=== PATIENT | female | born 1940 | race Caucasian/White ===

== ENCOUNTER → 2017-07-17 | Outpatient (CLI) | payer MEDICARE, OTHER ==
--- NOTE | 2017-07-17 10:23 | REPMRS ---
Patient History The patient states she had a clinical breast exam in 07/2017. Family history of colorectal cancer in sister at age 50 or over. Digital Woman Screen Mammo: July 17, 2017 - Exam #: [id number] Bilateral CC and MLO view(s) were taken. Technologist: Dalia Roth Technologist Prior study comparison: July 15, 2016, digital woman screen mammo performed at [facility]. July 13, 2015, digital woman screen mammo performed at [facility]. April 20, 2014, digital woman screen mammo performed at [facility]. FINDINGS: There are scattered fibroglandular densities. There has been no change in the appearance of the mammogram from the prior studies. There is a mild amount of scattered fibroglandular density which is fairly symmetric. There is no interval development of dominant mass, architectural distortion, or clustered microcalcification suggestive of malignancy. ASSESSMENT: BI-RADS/ACR category 1 mammogram. Negative. Recommendation Routine screening mammogram in 1 year (for women over age 40). This mammogram was interpreted with the aid of an FDA-approved computer-aided dectection system. Electronically Signed By: Jim Talbot MD 07/17/17 4450
== END ==
LOC: M WHC 09:35
PROVIDERS: ATTEND Nurse Practitioner Women's Health
DX: Z01.419 Encounter for gynecological examination (general) (routine) without abnormal findings (principal); Z12.31 Encounter for screening mammogram for malignant neoplasm of breast
CPT/HCPCS: G0101; G0202

== ENCOUNTER → 2018-07-17 | Outpatient (CLI) | payer MEDICARE, OTHER | LOC: M WUC 12:32 | DX: S16.1XXA Strain of muscle, fascia and tendon at neck level, initial encounter (principal); M25.511 Pain in right shoulder; X58.XXXA Exposure to other specified factors, initial encounter; Y92.89 Other specified places as the place of occurrence of the external cause; Y93.9 Activity, unspecified | CPT/HCPCS: 72052 ==

== ENCOUNTER → 2018-07-20 | Outpatient (CLI) | payer MEDICARE, OTHER | LOC: M WHC 09:41 | DX: Z12.31 Encounter for screening mammogram for malignant neoplasm of breast (principal); Z80.0 Family history of malignant neoplasm of digestive organs | CPT/HCPCS: 77067 ==

== ENCOUNTER → 2018-09-03 | Outpatient (REF) | payer MEDICARE, OTHER ==
[2018-09-03 13:28] LABS: BASO % 0.5 % (0.0-1.0); EOS % 0.5 % (0.0-3.0); HEMATOCRIT 41.1 % (36.0-47.0); HEMOGLOBIN 13.8 g/dl (12.0-15.5); IMMATURE GRANULOCYTE % 0.2 % (0-3.0); LYMPH # 1.8 10^3/uL (1.5-4.5); LYMPH % 30.1 % (24.0-44.0); MEAN CORPUSCULAR HEMOGLOBIN 32.3 pg (27.0-33.0); MEAN CORPUSCULAR HGB CONC 33.6 g/dl (32.0-36.5); MEAN CORPUSCULAR VOLUME 96.3 fl (80.0-96.0); MONO # 0.4 10^3/uL (0.0-0.8); MONO % 7.2 % (0.0-5.0); NEUTROPHILS # 3.7 10^3/uL (1.8-7.7); NEUTROPHILS % 61.5 % (36.0-66.0); PLATELET COUNT, AUTOMATED 292 10^3/uL (150-450); RED BLOOD COUNT 4.27 10^6/uL (4.00-5.40); RED CELL DISTRIBUTION WIDTH 13.1 % (11.5-14.5); WHITE BLOOD COUNT 5.9 10^3/uL (4.0-10.0)
[2018-09-03 14:07] LABS: ALBUMIN 3.8 GM/DL (3.2-5.2); ALBUMIN/GLOBULIN RATIO 1.03 (1.00-1.93); ALKALINE PHOSPHATASE 53 U/L (45-117); ALT/SGPT 33 U/L (12-78); ANION GAP 8 MEQ/L (8-16); AST/SGOT 23 U/L (7-37); BILIRUBIN,TOTAL 0.8 MG/DL (0.2-1.0); BLOOD UREA NITROGEN 18 MG/DL (7-18); CALCIUM LEVEL 8.8 MG/DL (8.8-10.2); CARBON DIOXIDE LEVEL 29 MEQ/L (21-32); CHLORIDE LEVEL 104 MEQ/L (98-107); CHOLESTEROL LEVEL 242 MG/DL (<200); CHOLESTEROL RISK RATIO 3.361 (<5); CREATININE FOR GFR 0.81 MG/DL (0.55-1.30); GLOMERULAR FILTRATION RATE > 60.0 (>39); GLUCOSE, FASTING 86 MG/DL (70-100); HDL CHOLESTEROL 72 MG/DL (>40); LDL CHOLESTEROL 160 MG/DL (<100); NON-HDL-C 170 MG/DL; SODIUM LEVEL 141 MEQ/L (136-145); TOTAL 25(OH) VITAMIN D 33.5 NG/ML (30.0-100.0); TOTAL PROTEIN 7.5 GM/DL (6.4-8.2); TRIGLYCERIDES LEVEL 52 MG/DL (<150)
== END ==
LOC: M SFHCADAM 10:35
DX: K21.9 Gastro-esophageal reflux disease without esophagitis (principal); E78.2 Mixed hyperlipidemia; E55.9 Vitamin D deficiency, unspecified; Z79.899 Other long term (current) drug therapy
CPT/HCPCS: 84443

== ENCOUNTER → 2019-07-21 | Outpatient (CLI) | payer MEDICARE, OTHER ==
--- NOTE | 2019-07-21 10:06 | REPMRS ---
Patient History The patient states she had a clinical breast exam in 07/2019. Family history of colorectal cancer at age 50 or over in sister. No Hormone Replacement Therapy 3D TOMOSYNTHESIS WAS PERFORMED. [facility] for [facility] cancer is 1.7%. Digital Woman Screen Mammo: July 21, 2019 - Exam #: [id number] Bilateral CC and MLO view(s) were taken. Technologist: Sharonda Hinkle, Technologist Prior study comparison: July 20, 2018, bilateral digital woman screen mammo performed at [facility]. July 17, 2017, digital woman screen mammo performed at [facility]. FINDINGS: There are scattered fibroglandular densities. There has been no change in the appearance of the mammogram from the prior studies. There is a mild amount of residual fibroglandular tissue which is fairly symmetric. There is no interval development of dominant mass, architectural distortion, or clustered microcalcification suggestive of malignancy. Assessment: BI-RADS/ACR category 1 mammogram. Negative Mammogram. Recommendation Routine screening mammogram in 1 year (for women over age 40). This mammogram was interpreted with the aid of an FDA-approved computer-aided dectection system. Electronically Signed By: Yannick Mera MD 07/21/19 3501
== END ==
LOC: M WHC 09:18
PROVIDERS: ATTEND Nurse Practitioner Women's Health
DX: Z01.419 Encounter for gynecological examination (general) (routine) without abnormal findings (principal); Z12.31 Encounter for screening mammogram for malignant neoplasm of breast; Z80.0 Family history of malignant neoplasm of digestive organs
CPT/HCPCS: 77063; 77067; G0101

== ENCOUNTER → 2019-09-21 | Outpatient (REF) | payer MEDICARE, OTHER ==
[2019-09-21 12:43] LABS: BASO % 0.7 % (0.0-1.0); EOS # 0.1 10^3/uL (0.0-0.5); EOS % 2.4 % (0.0-3.0); HEMATOCRIT 40.7 % (36.0-47.0); HEMOGLOBIN 13.7 g/dl (12.0-15.5); LYMPH % 37.1 % (24.0-44.0); MEAN CORPUSCULAR HEMOGLOBIN 32.5 pg (27.0-33.0); MEAN CORPUSCULAR HGB CONC 33.7 g/dl (32.0-36.5); MEAN CORPUSCULAR VOLUME 96.4 fl (80.0-96.0); MONO # 0.4 10^3/uL (0.0-0.8); MONO % 7.7 % (0.0-5.0); NEUTROPHILS # 2.8 10^3/uL (1.5-8.5); NEUTROPHILS % 51.9 % (36.0-66.0); PLATELET COUNT, AUTOMATED 292 10^3/uL (150-450); RED BLOOD COUNT 4.22 10^6/uL (4.00-5.40); WHITE BLOOD COUNT 5.4 10^3/uL (4.0-10.0)
[2019-09-21 13:13] LABS: ALBUMIN 3.9 GM/DL (3.2-5.2); ALT/SGPT 27 U/L (12-78); BILIRUBIN,TOTAL 0.9 MG/DL (0.2-1.0); BLOOD UREA NITROGEN 15 MG/DL (7-18); CARBON DIOXIDE LEVEL 29 MEQ/L (21-32); CHLORIDE LEVEL 106 MEQ/L (98-107); CHOLESTEROL LEVEL 166 MG/DL (<200); CHOLESTEROL RISK RATIO 2.766 (<5); CREATININE FOR GFR 0.92 MG/DL (0.55-1.30); GLOMERULAR FILTRATION RATE > 60.0 (>39); GLUCOSE, FASTING 97 MG/DL (70-100); HDL CHOLESTEROL 60 MG/DL (>40); LDL CHOLESTEROL 89 MG/DL (<100); NON-HDL-C 106 MG/DL; POTASSIUM SERUM 4.8 MEQ/L (3.5-5.1); SODIUM LEVEL 142 MEQ/L (136-145); THYROID STIMULATING HORMONE 0.943 uIU/ML (0.358-3.740); TOTAL PROTEIN 7.6 GM/DL (6.4-8.2); TRIGLYCERIDES LEVEL 85 MG/DL (<150)
== END ==
LOC: M SFHCADAM 08:33
PROVIDERS: ATTEND Physician Assistant Medical
DX: K21.9 Gastro-esophageal reflux disease without esophagitis (principal); E78.2 Mixed hyperlipidemia; E55.9 Vitamin D deficiency, unspecified; Z23 Encounter for immunization
CPT/HCPCS: 80053; 80061; 84443; 85025; 90682; G0008; G0463

== ENCOUNTER → 2020-08-23 | Outpatient (CLI) | payer MEDICARE, OTHER ==
--- NOTE | 2020-08-23 10:22 | REPMRS ---
Patient History The patient states she had a clinical breast exam in August 2020. Family history of colorectal cancer at age 50 or over in sister. No Hormone Replacement Therapy 3D TOMOSYNTHESIS WAS PERFORMED. [facility] Volpara breast density b. Digital Woman Screen Mammo: August 23, 2020 - Exam #: [id number] Bilateral CC and MLO view(s) were taken. Technologist: Smiley Murray, Technologist Prior study comparison: July 21, 2019, bilateral digital woman screen mammo performed at [facility]. July 20, 2018, bilateral digital woman screen mammo performed at [facility]. FINDINGS: There are scattered fibroglandular densities. There has been no change in the appearance of the mammogram from the prior studies. There is a mild amount of residual fibroglandular tissue which is fairly symmetric. There is no interval development of dominant mass, architectural distortion, or clustered microcalcification suggestive of malignancy. Assessment: BI-RADS/ACR category 1 mammogram. Negative Mammogram. Recommendation Routine screening mammogram in 1 year (for women over age 40). This mammogram was interpreted with the aid of an FDA-approved computer-aided dectection system. Electronically Signed By: Yannick Mera MD 08/23/20 0723
--- NOTE | 2020-08-30 14:54 | DEXA ---
AP SPINE L1 - L4 1.158 -0.3 1.6 LT FEMUR TOTAL 0.782 -1.8 0.3 LT NECK 0.729 -2.2 0.0 RT FEMUR TOTAL 0.853 -1.2 0.8 RT NECK 0.772 -1.9 0.3 TOTAL BODY TOTAL OTHER COMMENTS: Normal bone densitometry of the spine. There is low bone density of the hips. The decreased density of the spine does not represent significant change. The decreased density of the left hip does not represent a significant change. The increased density of the right hip does represent significant change. The density of the spine is increased 14.8% since the initial exam on 11/25/2001. The decreased 0.4% since most recent exam on 03/30/2013. The density of the left hip has increased 2.1% since the initial exam on 11/25/2001. The density of the left hip has decreased 1.1% since the most recent exam on 03/30/2013. The density of the right hip has increased 5.7% since the initial exam on 11/25/2001. The density of the right hip has increased 0.4% since the most recent exam on 03/30/2013. FOLLOW-UP: Recommendation for the next bone density exam: 2 years. AVERY
== END ==
LOC: M WHC 08:34
PROVIDERS: ATTEND Nurse Practitioner Family
DX: Z01.411 Encounter for gynecological examination (general) (routine) with abnormal findings (principal); Z12.31 Encounter for screening mammogram for malignant neoplasm of breast; Z78.0 Asymptomatic menopausal state; Z80.0 Family history of malignant neoplasm of digestive organs
CPT/HCPCS: 77063; 77067; 77080; G0101

== ENCOUNTER → 2020-09-10 | Outpatient (CLI) | payer MEDICARE, OTHER | LOC: M LABSMTC 09:31 | PROVIDERS: ATTEND Anesthesiology | DX: Z01.812 Encounter for preprocedural laboratory examination (principal); Z20.828 Contact with and (suspected) exposure to other viral communicable diseases | CPT/HCPCS: C9803; U0003 ==

== ENCOUNTER 2020-09-15 11:20 | Day surgery (SDC) | payer MEDICARE, OTHER ==
[~2020-09-15] VITALS: Ht 160 cm; Wt 69.4 kg
[~2020-09-15 11:20] MED LIST: NS 1,000 ML IV ONE
--- NOTE | 2020-09-15 12:58 | ROOR ---
Patient Name: Britney Oakes Procedure Date: 09/15/2020 12:14 PM Date of : 1940 Age: 79 Room: [facility] Gender: Female Note Status: Finalized Procedure: Colonoscopy Indications: High risk colon cancer surveillance: Personal history of colonic polyps, Last colonoscopy: October 2014 Providers: Kodak Damon MD Referring MD: ARSALAN Rosales Requesting Provider: Medicines: Monitored Anesthesia Care Complications: No immediate complications. Procedure: Pre-Anesthesia Assessment: - Prior to the procedure, a History and Physical was performed, and patient medications and allergies were reviewed. The patient is competent. The risks and benefits of the procedure and the sedation options and risks were discussed with the patient. All questions were answered and informed consent was obtained. Patient identification and proposed procedure were verified by the physician, the nurse and the lead project engineer in the procedure room. Mental Status Examination: alert and oriented. Airway Examination: normal oropharyngeal airway and neck mobility. CV Examination: regular rate and rhythm. Prophylactic Antibiotics: The patient does not require prophylactic antibiotics. Prior Anticoagulants: The patient has taken no previous anticoagulant or antiplatelet agents. ASA Grade Assessment: II - A patient with mild systemic disease. After reviewing the risks and benefits, the patient was deemed in satisfactory condition to undergo the procedure. The anesthesia plan was to use monitored anesthesia care (MAC). Immediately prior to administration of medications, the patient was re-assessed for adequacy to receive sedatives. The heart rate, respiratory rate, oxygen saturations, blood pressure, adequacy of pulmonary ventilation, and response to care were monitored throughout the procedure. The physical status of the patient was re-assessed after the procedure. The Colonoscope was introduced through the anus and advanced to the cecum, identified by appendiceal orifice and ileocecal valve. The colonoscopy was somewhat difficult due to a redundant colon. Successful completion of the procedure was aided by applying abdominal pressure. The patient tolerated the procedure well. The quality of the bowel preparation was good. Findings: The perianal exam findings include internal hemorrhoids that do not return to the anal canal, thus continuously prolapsed (Grade IV). Hemorrhoids were found on perianal exam. A 4 mm polyp was found at 25 cm proximal to the anus. The polyp was sessile. The polyp was removed with a jumbo cold forceps. Resection and retrieval were complete. Estimated blood loss was minimal. The exam was otherwise without abnormality. Impression: - Internal hemorrhoids that do not return to the anal canal, thus continuously prolapsed (Grade IV) found on perianal exam. - Hemorrhoids found on perianal exam. - One 4 mm polyp at 25 cm proximal to the anus, removed with a jumbo cold forceps. Resected and retrieved. - The examination was otherwise normal. Recommendation: - Discharge patient to home. - Resume previous diet. - Continue present medications. - Await pathology results. - If the pathology report reveals adenomatous tissue, then repeat the colonoscopy for surveillance in 5 years. Kodak Damon MD Kodak Damon MD 09/15/2020 12:57:41 PM Electronically signed by Kodak Damon MD Number of Addenda: 0 Note Initiated On: 09/15/2020 12:14 PM Estimated Blood Loss: Estimated blood loss was minimal.
[2020-09-15 13:20] VITALS: BP 129/72
== END 2020-09-15 13:40 | disposition home or self-care (01) ==
LOC: M OPP 11:20
PROVIDERS: ATTEND Surgery
DX: Z12.11 Encounter for screening for malignant neoplasm of colon (principal); Z86.010 Personal history of colon polyps; Z80.0 Family history of malignant neoplasm of digestive organs; K64.3 Fourth degree hemorrhoids; K63.5 Polyp of colon

== ENCOUNTER → 2020-09-19 | Outpatient (REF) | payer MEDICARE, OTHER ==
[2020-09-19 13:11] LABS: BASO % 0.6 % (0.0-1.0); EOS # 0.2 10^3/uL (0.0-0.5); EOS % 2.8 % (0.0-3.0); HEMATOCRIT 40.7 % (36.0-47.0); HEMOGLOBIN 13.3 g/dl (12.0-15.5); LYMPH % 36.8 % (24.0-44.0); MEAN CORPUSCULAR HEMOGLOBIN 32.2 pg (27.0-33.0); MEAN CORPUSCULAR HGB CONC 32.7 g/dl (32.0-36.5); MEAN CORPUSCULAR VOLUME 98.5 fl (80.0-96.0); MONO # 0.4 10^3/uL (0.0-0.8); MONO % 8.1 % (0.0-5.0); NEUTROPHILS # 2.8 10^3/uL (1.5-8.5); NEUTROPHILS % 51.5 % (36.0-66.0); PLATELET COUNT, AUTOMATED 274 10^3/uL (150-450); RED BLOOD COUNT 4.13 10^6/uL (4.00-5.40); WHITE BLOOD COUNT 5.4 10^3/uL (4.0-10.0)
[2020-09-19 13:57] LABS: ALBUMIN 3.6 GM/DL (3.2-5.2); ALT/SGPT 20 U/L (12-78); BILIRUBIN,TOTAL 0.6 MG/DL (0.2-1.0); BLOOD UREA NITROGEN 20 MG/DL (7-18); CALCIUM LEVEL 8.6 MG/DL (8.8-10.2); CARBON DIOXIDE LEVEL 31 MEQ/L (21-32); CHLORIDE LEVEL 109 MEQ/L (98-107); CHOLESTEROL LEVEL 198 MG/DL (<200); CHOLESTEROL RISK RATIO 3.735 (<5); GLOMERULAR FILTRATION RATE > 60.0 (>32); GLUCOSE, FASTING 85 MG/DL (70-100); HDL CHOLESTEROL 53 MG/DL (>40); LDL CHOLESTEROL 125 MG/DL (<100); NON-HDL-C 145 MG/DL; POTASSIUM SERUM 4.7 MEQ/L (3.5-5.1); SODIUM LEVEL 144 MEQ/L (136-145); THYROID STIMULATING HORMONE 0.936 uIU/ML (0.358-3.740); TOTAL PROTEIN 6.8 GM/DL (6.4-8.2); TRIGLYCERIDES LEVEL 98 MG/DL (<150)
== END ==
LOC: M SFHCADAM 08:06
PROVIDERS: ATTEND Physician Assistant Medical
DX: K21.9 Gastro-esophageal reflux disease without esophagitis (principal); E78.2 Mixed hyperlipidemia; E55.9 Vitamin D deficiency, unspecified

== ENCOUNTER 2020-12-22 17:31 | Inpatient (IN) | payer MEDICARE, OTHER ==
[~2020-12-22] VITALS: Ht 160 cm; Wt 75.9 kg
--- OUTSIDE RECORDS SUMMARY | 2020-12-22 17:37 | CCD ---
Author Author [facility] Organization [facility] Address Unknown Phone Unavailable Support Name Relationship Address Phone DAYANA MURGUIA Next Of Kin [address] [place] [address] RETIRED Next Of Kin Unknown RE Next Of Kin Unknown Unavailable OZZY JARVIS Next Of Kin [address] [place] [address] OZZY JARVIS ECON [address] [place] [address] [phone] Re-disclosure Warning The records that you are about to access may contain information from federally-assisted alcohol or drug abuse programs. If such information is present, then the following federally mandated warning applies: This information has been disclosed to you from records protected by federal confidentiality rules (42 CFR part 2). The federal rules prohibit you from making any further disclosure of this information unless further disclosure is expressly permitted by the written consent of the person to whom it pertains or as otherwise permitted by 42 CFR part 2. A general authorization for the release of medical or other information is NOT sufficient for this purpose. The Federal rules restrict any use of the information to criminally investigate or prosecute any alcohol or drug abuse patient.The records that you are about to access may contain highly sensitive health information, the redisclosure of which is protected by Article 27-F of the [facility] Public Health law. If you continue you may have access to information: Regarding HIV / AIDS; Provided by facilities licensed or operated by the [facility] Office of Mental Health; or Provided by the [facility] Office for People With Developmental Disabilities. If such information is present, then the following [facility] mandated warning applies: This information has been disclosed to you from confidential records which are protected by state law. State law prohibits you from making any further disclosure of this information without the specific written consent of the person to whom it pertains, or as otherwise permitted by law. Any unauthorized further disclosure in violation of state law may result in a fine or [place] health care facility sentence or both. A general authorization for the release of medical or other information is NOT sufficient authorization for further disc losure. Family History Family Member Name Family Member Gender Family Member Status Date o f Status Description Data Source(s) Unknown Male Problem MEDENT ([facility]) Unknown Unknown Problem MEDENT ([facility]) Unknown Unknown Problem MEDENT ([facility] Encounters Encounter Providers Location Date Indications Data Source(s ) Office Visit, Est Pt., Level 3 [address] [place] [address] 09/25/2020 12:00:00 AM EST eCW1 ([facility]) ( GYNANN) [facility] Yearly WEB APPLICATION TESTER Exam [address] [place] [address] 08/23/2020 12:00:00 AM EDT eCW1 ([facility]) [place] [id number] 07/19/2020 12:00:00 AM EDT eCW1 ([facility]) [address] [address] 01/27/2020 12:00:00 AM EDT eCW1 ([facility]) [address] [address] 01/17/2020 12:00:00 AM EDT eCW1 ([facility]) [address] [address] 01/14/2020 12:00:00 AM EDT eCW1 ([facility]) [address] [address] 12/30/2019 12:00:00 AM EST eCW1 ([facility]) [address] [address] 12/20/2019 12:00:00 AM EST eCW1 ([facility]) Immunizations Vaccine Date Status Description Data Source(s) COVID-19 VACCINE, MRNA, [id number], LNP-S (PFIZER)/PF 12/03/19 12:00:00 AM EST completed [facility] influenza, recombinant, quadrIvalent,injectable, prese rvative free 09/25/2020 09:16:00 AM EST completed eCW1 ([facility]) Medications Medication Brand Name Start Date Product Form Dose Route Admi nistrative Instructions Pharmacy Instructions Status Indications Reaction Description Data Source(s) 17.5-3.13-1.6 gram 09/11/2020 12:00:00 AM EST recon soln 354 DIRECTED PER BOWEL PREP INSTRUCTIONS DIRECTED PER BOWEL PREP INSTRUCTIONS SOLD: 09/13/2020 [facility] Insurance Providers Payer name Policy type / Coverage type Policy ID Covered republican ID Covered republican's relationship to farias Policy Farias Plan Information [facility] [id number] SP [id number] MEDICARE [id number] SP [id number] ANSI-Commercial [id number] ANSI-Medicare Part B [id number] ANSI-Commercial [id number] ANSI-Medicare Part B [id number] Umr (pr) [facility] Part B [id number] Self [id number] Medicare [place] Primary [id number] Self [id number] ANSI-Medicare Part B [id number] ANSI-Commercial [id number] Umr/[facility]/[employer] Medigap Part B [id number] Self [id number] Medicare Natl Gov't Servi Medicare Primary [id number] Self [id number] R [facility] [id number] SP [id number] Medicare Part B [facility] Other 0 Se lf 0 [employer] [id number] SP [id number] MEDICARE [id number] SP [id number] A [employer] [id number] SP [id number] MEDICARE [id number] SP [id number] A Medicare [place] Medicare Primary Self [facility] Medigap Part B Self [employer] Medigap Part B Self [facility]-O/P [id number] 18 [id number] MEDICARE -O/P [id number] 18 [id number] A [id number] Problems, Conditions, and Diagnoses Code Display Name Description Problem Type Effective Dates Data Source(s) N39.3 59741738 Stress incontinence (female) (male) Probl em 08/23/2020 12:00:00 AM EDT eCW1 ([facility]) Surgeries/Procedures Procedure Description Date Indications Data Source(s) Immunization: Flublok Quadrivalent (18 years & older) 0.5mL IM (Influenza) 09/25/2020 12:00:00 AM EST eCW1 ([facility]) Results ID Date Data Source [id number] 09/10/2020 11:55:00 AM EST [facility] Name Value Range Interpretation Code Description Data Coco rce(s) Supporting Document(s) SARS coronavirus 2 RNA [facility] This lab was ordered by [facility] and reported by [facility]. ID Date Data Source Dexa, Full Body 08/31/2020 11:27:24 AM EDT eCW1 ([facility]) Name Value Range Interpretation Code Description Data Coco rce(s) Supporting Document(s) Dexa, Full Body eCW1 (Pending sale to [facility]) ID Date Data Source [facility] Toni Screening Bilateral (Ultrasound if Indicated ) (3D Mammo) 08/23/2020 02:34:00 AM EDT eCW1 ([facility]) Name Value Range Interpretation Code Description Data Coco rce(s) Supporting Document(s) [facility] Toni Screening Bilat eral (Ultrasound if Indicated) (3D Mammo) eCW1 ([facility]) Procedure Social History Code Duration Value Status Description Data Source(s ) Smoking 09/25/2020 12:00:00 AM EST Never Smoker completed Never S moker eCW1 ([facility]) Smoking 08/23/2020 12:00:00 AM EDT Never Smoker completed Never S moker eCW1 ([facility]) Vital Signs ID Date Data Source UNK Name Value Range Interpretation Code Description Data Source(s) Diastolic blood pressure 80 mm[Hg] 80 mm[Hg] eCW1 ([facility]) Systolic blood pressure 138 mm[Hg] 138 mm[Hg] e CW1 ([facility]) Body temperature 96.3 [degF] 96.3 [degF] eCW1 ( [facility]) Respiratory rate 18 /min 18 /min eCW1 ([facility]) Heart rate 70 /min 70 /min eCW1 (Pending sale to [facility]) Body mass index (BMI) [Ratio] 26.75 kg/m2 26.75 kg/m2 W1 ([facility]) Body height 63 [in_i] 63 [in_i] eCW1 ([facility]) Body weight 151 [lb_av] 151 [lb_av] eCW1 ([facility]) Body weight 69.401 kg 69.401 kg MEDENT ([facility], ) [place] body weight 115 [lb_av] 115 [lb_av] MEDEN T ([facility], ) Body mass index (BMI) [Ratio] 27.1 kg/m2 27.1 k g/m2 MEDENT ([facility], ) Body weight 153.00 [lb_av] 153.00 [lb_av] LUCILA T ([facility], ) Body height 63 [in_i] 63 [in_i] [facility] ([facility], ) 5'3" Diastolic blood pressure 68 mm[Hg] 68 mm[Hg] MEDBUD ([facility], ) Systolic blood pressure 135 mm[Hg] 135 mm[Hg] M EDENT ([facility], ) Diastolic blood pressure 74 mm[Hg] 74 mm[Hg] eCW1 ([facility]) Systolic blood pressure 136 mm[Hg] 136 mm[Hg] e CW1 ([facility]) Body mass index (BMI) [Ratio] 26.92 kg/m2 26.92 kg/m2 W1 ([facility]) Body height 63 [in_i] 63 [in_i] W1 ([facility]) Body weight 152 [lb_av] 152 [lb_av] W1 ([facility])
--- OUTSIDE RECORDS SUMMARY | 2020-12-22 17:37 | CCD ---
Author Author [facility] Organization [facility] Address Unknown Phone Unavailable Care Team Providers Care Underlay Stitcher Name Role Phone Margo Perera Unavailable PROBLEMS Type Condition ICD9-CM Code MLW01-PB Code Onset Dates Condition S tatus SNOMED Code Notes Problem Hx of hysterectomy for benign disease Z90.710 Ac tive 569703023 Problem Stress incontinence (female) (male) N39.3 Acti ve 94942129 Problem GERD without esophagitis K21.9 Active 3766370 05 Problem Vitamin D deficiency E55.9 Active 15267522 Problem Mixed hyperlipidemia E78.2 Active 247085398 ALLERGIES No Known Allergies ENCOUNTERS from 1940 to 2020-10-04 Encounter Location Date Provider Diagnosis [place] [id number] [place] [address] Sep, Kirstie tyree Perera Medicare annual wellness visit, subsequent Z00.00 ; GERD without esophagitis K21.9 ; Mixed hyperlipidemia E78.2 ; Vitamin D deficiency E55.9 and Encounter for immunization Z23 IMMUNIZATIONS Vaccine Route Administration Date Status Influenza (18 yrs & older) Flublok IM Intramuscular Sep 25, 2020 Administered Influenza (18 yrs & older) Flublok IM Intramuscular Sep 21, 2019 Administered Zoster 50mcg/0.5mL (Shingrix) Unknown Jul 30, 2018 Ad ministered Zoster 50mcg/0.5mL (Shingrix) Unknown Jul 27, 2018 Ad ministered TDAP 0.5mL (Boostrix) IM Intramuscular Sep 03, 2018 Administe red SOCIAL HISTORY Tobacco Use: Social History Observation Description Date Details (start date - stop date) Never Smoker Sex Assigned At : Social History Observation Description Sex Assigned At Unknown Audit Question Answer Notes Total Score: 0 Interpretation: Alcohol Education Domestic Violence: Question Answer Notes Status: Sexual Hx: Question Answer Notes Had sex in the last 12 months (vaginal, oral, or anal)? No LMP: hyster Have you ever had an STD? No Drug and Alcohol Question Answer Notes Total Score: 0 Interpretation: No problems reported Alcohol Screening: Question Answer Notes Did you have a drink containing alcohol in the past year? No Points 0 Interpretation Negative BMI Care Goal Follow-Up Question Answer Notes Below Normal BMI Follow-Up Dietary education for weight gain Tobacco Use: Question Answer Notes Are you a: never smoker REASON FOR REFERRAL No Information VITAL SIGNS Weight 151 lbs Sep, Height 63 in Sep, BMI 26.75 kg/m2 Sep, Heart Rate 70 /min Sep, Respiratory Rate 18 /min Sep, Temperature 96.3 degrees Fahrenheit Sep, Oximetry 87 Sep, Blood pressure systolic 138 mm Hg Sep, Blood pressure diastolic 80 mm Hg Sep, MEDICATIONS Medication SIG (Take, Route, Frequency, Duration) Notes Start Da te End Date Status Atorvastatin Calcium 10 MG 1 tablet Orally before bedtime for 90 day(s) Sep, Active PROCEDURES Procedure Date Ordered Result Body Site Immunization: Flublok Quadrivalent (18 years & older) 0.5mL IM (Influenza) 2020-09-25 N/A RESULTS No Results REASON FOR VISIT 1 year labs before MEDICAL (GENERAL) HISTORY Type Description Date Medical History hyperlipidemia, 09/20 ASCVD 24.5% Medical History GERD Medical History Vit D Def Medical History 09/2020 DEXA, t score -1.8 L femur Surgical History hysterectomy secondary to prolapse, has ovaries 1979 Surgical History T & A 16 yo Surgical History cataract-lens implants-bilaterally early Surgical History colonoscopy; Dr. Damon, 09/2020 ` hype rplastic polyp 06/13 & 2014, 09/15/2020 Hospitalization History vaginal deliveries Goals Section No Information Health Concerns No Information MEDICAL EQUIPMENT No Information MENTAL STATUS No Information FUNCTIONAL STATUS No Information ASSESSMENTS Encounter Date Diagnosis Assessment Notes Treatment Notes Treatm ent Clinical Notes Sep, Medicare annual wellness visit, subsequent (ICD- 10 - Z00.00) Sep, GERD without esophagitis (ICD-10 - K21.9) Symptoms controlled off meds. Sep, Mixed hyperlipidemia (ICD-10 - E78.2) 09/22 Trig 98, LDL 125, HDL 53 enc low fat diet. Sep, Vitamin D deficiency (ICD-10 - E55.9) Sep, Encounter for immunization (ICD-10 - Z23) Sep, Other Flu 09/22. Due f or PN, defers today. Tdap 09/20. 08/21 Mammo. 07/21 CBE, 07/20 Pelvic/CBE - WTW. 09/2020 - colonoscopy, NBIH - repeat in 5 years. Requested to bring copy of HCP and Living Will. Shingrix x 2 completed. PLAN OF TREATMENT Medication Medication Name Sig Start Date Stop Date Atorvastatin Calcium 10 MG 1 tablet Orally before bedtime fo r 90 day(s) Sep, Treatment Notes Assessment Notes Clinical Notes GERD without esophagitis Symptoms controlled off meds. Mixed hyperlipidemia 09/22 Trig 98, LDL 125, HDL 53 enc low fat diet. Future Test Test Name Order Date CBC with Differential [id number] Comprehensive Metabolic Profile (CMP) [id number] LIPID PANEL (CARDIAC RISK) [id number] TSH [id number] VITAMIN D 25-HYDROXY [id number] Next Appt Details 1 Year, BW before Reason: Provider Name:Suzan Lassiter, 2021-08-24 08:30:00 AM, [address] [place], [address], Insurance Providers Payer Name Payer Address Payer Phone Insured Name Patient Relati onship to Insured Coverage Start Date Coverage End Date MEDICARE Part A and B [address] [facility] [id number] DAYANA MURGUIA self [facility] [address] [address] [facility] [phone] DAYANA MURGUIA
[2020-12-22 17:58] LABS: BASO % 0.4 % (0.0-1.0); EOS # 0.1 10^3/uL (0.0-0.5); EOS % 0.9 % (0.0-3.0); HEMATOCRIT 39.2 % (36.0-47.0); HEMOGLOBIN 12.9 g/dl (12.0-15.5); LYMPH # 2.4 10^3/uL (1.5-5.0); LYMPH % 26.9 % (24.0-44.0); MEAN CORPUSCULAR HEMOGLOBIN 31.9 pg (27.0-33.0); MEAN CORPUSCULAR HGB CONC 32.9 g/dl (32.0-36.5); MEAN CORPUSCULAR VOLUME 96.8 fl (80.0-96.0); MONO # 0.6 10^3/uL (0.0-0.8); MONO % 6.8 % (2.0-8.0); NEUTROPHILS # 5.8 10^3/uL (1.5-8.5); NEUTROPHILS % 64.8 % (36.0-66.0); PLATELET COUNT, AUTOMATED 255 10^3/uL (150-450); RED BLOOD COUNT 4.05 10^6/uL (4.00-5.40)
[2020-12-22] MEDS ORDERED: NS 1,000 ML IV ONE (18:00)
[2020-12-22] MEDS ORDERED: ASPIRIN 81 MG CHEW TABLET PO ONE (18:00)
[2020-12-22] MEDS ORDERED: METOPROLOL TART 50 MG TAB PO ONE (18:00)
--- NOTE | 2020-12-22 18:05 | REP ---
INDICATION: CHEST PAIN. COMPARISON: 09/19/2005 TECHNIQUE: AP portable chest FINDINGS: Lungs are mildly hyperinflated there is cardiomegaly with left atrial and left ventricular enlargement. There is vascular redistribution and Jeremiah B lines present bilaterally. Small right effusion suspected. No definite left effusion. No dense consolidation. The aorta is calcified at the arch but without aneurysm. Airway midline. Bones show degenerative change. IMPRESSION: 1. Cardiomegaly with left atrial and ventricular enlargement, vascular redistribution and pulmonary interstitial edema as seen by Jeremiah B lines. Small right effusion suspected. Posterior lower lung zones are not well evaluated on a portable chest. No consolidation evident. <Electronically signed by Nicolas Correia > 12/22/20 2002
[2020-12-22] MEDS: METOPROLOL 5 MG/5 ML VIAL IV SCH ×3 (18:10→18:30)
[2020-12-22 18:22] LABS: INR 1.02; PROTHROMBIN TIME 13.6 SECONDS (12.5-14.3)
--- OUTSIDE RECORDS SUMMARY | 2020-12-22 18:36 | CCD ---
Author Author [facility] Organization [facility] Address Unknown Phone Unavailable Support Name Relationship Address Phone DAYANA MURGUIA Next Of Kin [phone] [place] [address] RETIRED Next Of Kin Unknown RE Next Of Kin Unknown Unavailable OZZY JARVIS Next Of Kin [address] [place] [address] OZZY JARVIS ECON [address] [place] [address] [phone] Re-disclosure Warning The records that you are [...] is protected by Article 27-F of the [facility] Public Health law. If you continue you may have access to information: Regarding HIV / AIDS; Provided by facilities licensed or operated by the [facility] Office of Mental Health; or Provided by the [facility] Office for People With Developmental Disabilities. If such information is present, then the following [facility] mandated warning applies: This information has been [...] law may result in a fine or custodial sentence or both. 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 [address] [place] [address] 08/23/2020 12:00:00 AM EDT eCW1 ([facility]) [place] [phone] 07/19/2020 12:00:00 AM EDT eCW1 ([facility]) [address] [address] 01/27/2020 12:00:00 AM EDT eCW1 ([facility]) [address] [address] 01/17/2020 12:00:00 AM EDT eCW1 ([facility]) [address] [address] 01/14/2020 12:00:00 AM EDT eCW1 ([facility]) [address] [address] 12/30/2019 12:00:00 AM EST eCW1 ([facility]) [address] [address] 12/20/2019 12:00:00 AM EST eCW1 ([facility]) Immunizations Vaccine Date Status Description Data Source(s) COVID-19 VACCINE, MRNA, [id number], LNP-S (PFIZER)/PF 12/03/19 12:00:00 AM EST completed [facility] influenza, recombinant, quadrIvalent,injectable, prese rvative free 09/25/2020 09:16:00 AM EST completed eCW1 ([facility]) Medications Medication Brand Name Start Date Product [...] farias Policy Farias Plan Information [facility] [id number] SP [id number] MEDICARE [id number] SP [id number] ANSI-Commercial [id number] ANSI-Medicare Part B [id number] ANSI-Commercial [id number] ANSI-Medicare Part B [id number] Umr (pr) [facility] Part B [id number] Self [id number] Medicare [place] Medicare Primary [id number] Self [id number] ANSI-Medicare Part B [id number] ANSI-Commercial [id number] Umr/[facility] Medigap Part B [id number] Self [id number] Medicare Natl Gov't Servi Medicare Primary [id number] Self [id number] R [facility] [id number] SP [id number] Medicare Part B [facility] Other 0 Se lf 0 [employer] [id number] SP [id number] MEDICARE [id number] SP [id number] A [facility] [id number] SP [id number] MEDICARE [id number] SP [id number] A Medicare [place] Medicare Primary Self [facility] Medigap Part B Self [place] Medigap Part B Self [facility]-O/P [id number] 18 [id number] MEDICARE -O/P [id number] 18 [id number] A [id number] Problems, Conditions, and Diagnoses Code Display Name Description Problem Type Effective Dates Data Source(s) N39.3 [id number] Stress incontinence (female) (male) Probl em 08/23/2020 12:00:00 AM EDT eCW1 ([facility]) Surgeries/Procedures Procedure Description Date Indications Data Source(s) Immunization: Flublok Quadrivalent (18 years & older) 0.5mL IM (Influenza) 09/25/2020 12:00:00 AM EST eCW1 ([facility]) Results ID Date Data Source [id number] 09/10/2020 11:55:00 AM EST [facility] Name Value Range Interpretation Code Description Data Coco rce(s) Supporting Document(s) SARS coronavirus 2 RNA [facility] This lab was ordered by [facility] and reported by [facility]. ID Date Data Source Dexa, Full Body 08/31/2020 11:27:24 AM EDT eCW1 ([facility]) Name Value Range Interpretation Code Description Data Coco rce(s) Supporting Document(s) Dexa, Full Body eCW1 ([facility]) ID Date Data Source [facility] Toni Screening Bilateral (Ultrasound if Indicated ) (3D Mammo) 08/23/2020 02:34:00 AM EDT eCW1 ([facility]) Name Value Range Interpretation Code Description Data Coco rce(s) Supporting Document(s) [facility] Toni Screening Bilat eral (Ultrasound if Indicated) (3D Mammo) eCW1 ([facility]) Procedure Social History Code Duration Value Status Description Data Source(s ) Smoking 09/25/2020 12:00:00 AM EST Never Smoker completed Never S moker eCW1 ([facility]) Smoking 08/23/2020 12:00:00 AM EDT Never Smoker completed Never S moker eCW1 ([facility]) Vital Signs ID Date Data Source UNK Name Value Range Interpretation Code Description Data Source(s) Diastolic blood pressure 80 mm[Hg] 80 mm[Hg] eCW1 ([facility]) Systolic blood pressure 138 mm[Hg] 138 mm[Hg] e CW1 ([facility]) Body temperature 96.3 [degF] 96.3 [degF] eCW1 ( [facility]) Respiratory rate 18 /min 18 /min eCW1 ([facility]) Heart rate 70 /min 70 /min eCW1 ([facility]) Body mass index (BMI) [Ratio] 26.75 kg/m2 26.75 kg/m2 W1 ([facility]) Body height 63 [in_i] 63 [in_i] eCW1 ([facility]) Body weight 151 [lb_av] 151 [lb_av] eCW1 ([facility]) Body weight 69.401 kg 69.401 kg MEDENT ([facility], ) [place] body weight 115 [lb_av] 115 [lb_av] MEDEN T ([facility], ) Body mass index (BMI) [Ratio] 27.1 kg/m2 27.1 k g/m2 MEDENT ([facility], ) Body weight 153.00 [lb_av] 153.00 [lb_av] LUCILA T ([facility], ) Body height 63 [in_i] 63 [in_i] [facility] ([facility], ) 5'3" Diastolic blood pressure 68 mm[Hg] 68 mm[Hg] MEDBUD ([facility], ) Systolic blood pressure 135 mm[Hg] 135 mm[Hg] M EDENT ([facility], ) Diastolic blood pressure 74 mm[Hg] 74 mm[Hg] eCW1 ([facility]) Systolic blood pressure 136 mm[Hg] 136 mm[Hg] e CW1 ([facility]) Body mass index (BMI) [Ratio] 26.92 kg/m2 26.92 kg/m2 W1 ([facility]) Body height 63 [in_i] 63 [in_i] W1 ([facility]) Body weight 152 [lb_av] 152 [lb_av] W1 ([facility])
[2020-12-22 18:37] LABS: BLOOD UREA NITROGEN 24 MG/DL (7-18); CARBON DIOXIDE LEVEL 27 MEQ/L (21-32); CHLORIDE LEVEL 106 MEQ/L (98-107); CREATININE FOR GFR 1.15 MG/DL (0.55-1.30); GLOMERULAR FILTRATION RATE 48.2 (>32); GLUCOSE, FASTING 122 MG/DL (70-100); POTASSIUM SERUM 4.4 MEQ/L (3.5-5.1); SODIUM LEVEL 141 MEQ/L (136-145)
[2020-12-22] MEDS ORDERED: LATA0.0015 OU (18:37)
[2020-12-22] MEDS ORDERED: ATOR1TAB19 PO (18:37)
[2020-12-22 18:38] LABS: ALBUMIN 3.7 GM/DL (3.2-5.2); ALT/SGPT 140 U/L (12-78); BILIRUBIN,DIRECT 0.2 MG/DL (0.0-0.2); BILIRUBIN,TOTAL 0.5 MG/DL (0.2-1.0); CALCIUM LEVEL 8.4 MG/DL (8.8-10.2); CK-MB VALUE MASS < 1.0 NG/ML (<3.6); CPK CREATINE PHOSPHOKINASE 55 U/L (26-192); FREE T4 1.04 NG/DL (0.76-1.46); MB/CK RELATIVE INDEX 1.82 (< OR =4); NT-PRO BNP 8020 PG/ML (<450); TOTAL PROTEIN 6.8 GM/DL (6.4-8.2); TROPONIN I 0.03 NG/ML (< 0.10)
[2020-12-22] MEDS ORDERED: ONDANSETRON 4MG/2ML VIAL IV ONE (19:00)
[2020-12-22] MEDS ORDERED: FUROSEMIDE 20MG/2ML VIAL (J1940) IV ONE (19:30)
[2020-12-22] MEDS ORDERED: CALCIUM CARBONATE 500 MG CHEW U/D PO PRN (20:45)
--- OUTSIDE RECORDS SUMMARY | 2020-12-22 20:55 | CCD ---
Author Author [facility] Organization [facility] Address Unknown Phone Unavailable Support Name Relationship Address Phone DAYANA MURGUIA Next Of Kin [address] [facility] [address] [address] [place] [address] RETIRED Next Of Kin Unknown RE Next Of Kin Unknown Unavailable OZZY JARVIS Next Of Kin [address] [facility] [address] [place] [address] OZZY JARVIS ECON [address] [facility] [address] [place] [address] [phone] Re-disclosure Warning The records that you are [...] is protected by Article 27-F of the [facility] Public Health law. If you continue you may have access to information: Regarding HIV / AIDS; Provided by facilities licensed or operated by the [facility] Office of Mental Health; or Provided by the [facility] Office for People With Developmental Disabilities. If such information is present, then the following [facility] mandated warning applies: This information has [...] law may result in a fine or assisted sentence or both. 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 [address] [place] [address] 08/23/2020 12:00:00 AM EDT eCW1 ([facility]) [place] [phone] 07/19/2020 12:00:00 AM EDT eCW1 ([facility]) [address] [address] 01/27/2020 12:00:00 AM EDT eCW1 ([facility]) [address] [address] 01/17/2020 12:00:00 AM EDT eCW1 ([facility]) [address] [address] 01/14/2020 12:00:00 AM EDT eCW1 ([facility]) [address] [address] 12/30/2019 12:00:00 AM EST eCW1 ([facility]) [address] [address] 12/20/2019 12:00:00 AM EST eCW1 ([facility]) Immunizations Vaccine Date Status Description Data Source(s) COVID-19 VACCINE, MRNA, [id number], LNP-S (PFIZER)/PF 12/03/19 12:00:00 AM EST completed [facility] influenza, recombinant, quadrIvalent,injectable, prese rvative free 09/25/2020 09:16:00 AM EST completed eCW1 ([facility]) Medications Medication Brand Name Start Date Product Form Dose Route Admi nistrative Instructions Pharmacy Instructions Status Indications Reaction Description Data Source(s) 17.5-3.13-1.6 gram 09/11/2020 12:00:00 AM EST recon soln 354 DIRECTED PER BOWEL PREP INSTRUCTIONS DIRECTED PER BOWEL PREP INSTRUCTIONS SOLD: 09/13/2020 [facility] Insurance Providers Payer name Policy type / Coverage type Policy ID Covered constitution party ID Covered constitution party's relationship to farias Policy Farias Plan Information UMR [facility] [id number] SP [id number] MEDICARE [id number] SP [id number] ANSI-Commercial [id number] ANSI-Medicare Part B [id number] ANSI-Commercial [id number] ANSI-Medicare Part B [id number] Umr (pr) [facility] Part B [id number] Self [id number] Medicare [place] Medicare Primary [id number] Self [id number] ANSI-Medicare Part B [id number] ANSI-Commercial [id number] [facility] Medigap Part B [id number] Self [id number] Medicare Natl Gov't Servi Medicare Primary [id number] Self [id number] [facility] [id number] SP [id number] Medicare Part B [facility] Other 0 Se lf 0 [employer] [id number] SP [id number] MEDICARE [id number] SP [id number] A [facility] [id number] SP [id number] MEDICARE [id number] SP [id number] A Medicare [place] Medicare Primary Self [facility] Medigap Part B Self [place] Medigap Part B Self [facility]-O/P [id number] 18 [id number] MEDICARE -O/P [id number] 18 [id number] A [id number] Problems, Conditions, and Diagnoses Code Display Name Description Problem Type Effective Dates Data Source(s) N39.3 [id number] Stress incontinence (female) (male) Probl em 08/23/2020 12:00:00 AM EDT eCW1 ([facility]) Surgeries/Procedures Procedure Description Date Indications Data Source(s) Immunization: Flublok Quadrivalent (18 years & older) 0.5mL IM (Influenza) 09/25/2020 12:00:00 AM EST eCW1 ([facility]) Results ID Date Data Source [id number] 09/10/2020 11:55:00 AM EST [facility] Name Value Range Interpretation Code Description Data Coco rce(s) Supporting Document(s) SARS coronavirus 2 RNA [facility] This lab was ordered by [facility] and reported by [facility]. ID Date Data Source Dexa, Full Body 08/31/2020 11:27:24 AM EDT eCW1 ([facility]) Name Value Range Interpretation Code Description Data Coco rce(s) Supporting Document(s) Dexa, Full Body eCW1 ([facility]) ID Date Data Source [facility] Toni Screening Bilateral (Ultrasound if Indicated ) (3D Mammo) 08/23/2020 02:34:00 AM EDT eCW1 ([facility]) Name Value Range Interpretation Code Description Data Coco rce(s) Supporting Document(s) [facility] Toni Screening Bilat eral (Ultrasound if Indicated) (3D Mammo) eCW1 ([facility]) Procedure Social History Code Duration Value Status Description Data Source(s ) Smoking 09/25/2020 12:00:00 AM EST Never Smoker completed Never S moker eCW1 ([facility]) Smoking 08/23/2020 12:00:00 AM EDT Never Smoker completed Never S moker eCW1 ([facility]) Vital Signs ID Date Data Source UNK Name Value Range Interpretation Code Description Data Source(s) Diastolic blood pressure 80 mm[Hg] 80 mm[Hg] eCW1 ([facility]) Systolic blood pressure 138 mm[Hg] 138 mm[Hg] e CW1 ([facility]) Body temperature 96.3 [degF] 96.3 [degF] eCW1 ( [facility]) Respiratory rate 18 /min 18 /min eCW1 ([facility]) Heart rate 70 /min 70 /min eCW1 ([facility]) Body mass index (BMI) [Ratio] 26.75 kg/m2 26.75 kg/m2 W1 ([facility]) Body height 63 [in_i] 63 [in_i] eCW1 ([facility]) Body weight 151 [lb_av] 151 [lb_av] eCW1 ([facility]) Body weight 69.401 kg 69.401 kg MEDENT ([facility], ) [place] body weight 115 [lb_av] 115 [lb_av] MEDEN T ([facility], ) Body mass index (BMI) [Ratio] 27.1 kg/m2 27.1 k g/m2 MEDENT ([facility], ) Body weight 153.00 [lb_av] 153.00 [lb_av] LUCILA T ([facility], ) Body height 63 [in_i] 63 [in_i] [facility] ([facility], ) 5'3" Diastolic blood pressure 68 mm[Hg] 68 mm[Hg] MEDBUD ([facility], ) Systolic blood pressure 135 mm[Hg] 135 mm[Hg] M EDENT ([facility], ) Diastolic blood pressure 74 mm[Hg] 74 mm[Hg] eCW1 ([facility]) Systolic blood pressure 136 mm[Hg] 136 mm[Hg] e CW1 ([facility]) Body mass index (BMI) [Ratio] 26.92 kg/m2 26.92 kg/m2 W1 ([facility]) Body height 63 [in_i] 63 [in_i] W1 ([facility]) Body weight 152 [lb_av] 152 [lb_av] W1 ([facility])
--- NOTE | 2020-12-22 20:59 | HPEPDOC ---
General Date of Admission Dec 22, 2020 at 20:44 Date of Service: Dec 22, 2020 Chief Complaint The patient is a 80-year-old female admitted with a reason for visit of Atrial Fibrillation With Rvr/Chf. Source: Patient History of Present Illness Mrs. Oakes is an 80-year-old female with hyperlipidemia who presents with worsening fatigue and shortness of breath. Generally, she is an active person. About 2 days ago, she started to feel more fatigued and tired. She got short of breath with exertion, which was abnormal for her. She decided to come to the ED for evaluation. While she was here, she is under have A. fib with RVR with a heart rate in the 150s. The ED contacted Dr. Chowdhury, who recommended Lopressor 25 mg every 8 hours. After administration of Lopressor, patient converted to normal sinus rhythm. Chest x-ray demonstrates cardiomegaly, pulmonary interstitial edema, and Jeremiah B-lines. ED gave 20 mg of IV Lasix. When I saw the patient, she started to feel better. She denies any recent chest pain. I discussed with her about anticoagulation for stroke prevention in the setting of atrial fibrillation. She is agreeable to starting anticoagulation. Patient will be admitted for new onset A. fib and CHF. Home Medications Scheduled Atorvastatin Calcium (Atorvastatin Calcium) 10 Mg Tablet, 10 MG PO QHS, ( Reported) Latanoprost/Pf (Latanoprost 0.005% Eye Drop) 7.5 Ml Drops, 1 DROP OU QHS, (Reported) Allergies Coded Allergies: No Known Allergies (Unverified , 09/07/20) Past Medical History Medical History 1. Hyperlipidemia 2. GERD 3. Vitamin D deficiency Surgical History 1. Hysterectomy secondary to prolapse 2. T & A 3. Cataract lens implants or lateral 4. Colonoscopy Family History Denies medical history in parents Social History * Smoker: non-smoker Alcohol: Denies Drugs: denies A-FIB/CHADSVASC A-FIB History Current/History of A-Fib/PAF?: Yes Current PO Anticoag Therapy: Yes Age/Risk Factor Scoring CHADSVASC: CHADSVASC Response (Comments) Value Age Risk Factor Age >/= 75 years old 2 Gender Risk Factor Female 1 Hx of CHF Yes 1 Hx of HTN No 0 Hx of Stroke/TIA/or VTE No 0 Hx of Diabetes No 0 Hx of Vascular Disease No 0 Total 4 Treatment Treatment ordered: Apixaban Review of Systems Constitutional: Reports: Fatigue; Denies: Chills, Fever Eyes: Denies: Vision change ENT: Denies: Sore Throat Skin: Denies: Rash Pulmonary: Reports: Dyspnea (on exertion); Denies: Cough Cardiovascular: Denies: Chest Pain, Palpitations Gastrointestinal: Reports: Abdominal Pain (abdominal discomfort which started in the ED) Genitourinary: Denies: Dysuria Hematologic: Denies: Bruising Neurological: Denies: Other Symptoms (denies paresthesias) Psych: Denies: Anxiety, Depression Physical Examination General Exam: Positive: Alert, Cooperative Eye Exam: Positive: EOMI; Negative: Sclera icteric ENT Exam: Positive: Atraumatic Neck Exam: Positive: Supple Chest Exam: Positive: Clear to auscultation Heart Exam: Positive: Rate Normal, Regular Rhythm Abdomen Exam: Positive: Normal bowel sounds, Soft Extremity Exam: Positive: Edema (very mild edema) Neuro Exam: Positive: Cranial Nerves 3-12 NL Psych Exam: Positive: Mental status NL, Mood NL Vital Signs Vital Signs Date Time Temp Pulse Resp B/P (MAP) Pulse Ox O2 Delivery O2 Flow Rate FiO2 12/22/20 20:45 61 111/71 (84) 100 12/22/20 19:33 20 12/22/20 18:33 Room Air 12/22/20 17:31 98.1 Laboratory Data Labs 24H Laboratory Tests 2 12/22/20 17:47: Immature Granulocyte % (Auto) 0.2, Neutrophils (%) (Auto) 64.8, Lymphocytes (%) (Auto) 26.9, Monocytes (%) (Auto) 6.8, Eosinophils (%) (Auto) 0.9, Basophils (%) (Auto) 0.4, Neutrophils # (Auto) 5.8, Lymphocytes # (Auto) 2.4, Monocytes # (Auto) 0.6, Eosinophils # (Auto) 0.1, Basophils # (Auto) 0.0, Nucleated Red Blood Cells % (auto) 0.0, Anion Gap 8, Glomerular Filtration Rate 48.2, Calcium Level 8.4L, Total Bilirubin 0.5, Direct Bilirubin 0.2, Aspartate Amino Transf (AST/SGOT) 74H, Alanine Aminotransferase (ALT/SGPT) 140H, Alkaline Phosphatase 69, Total Creatine Kinase 55, Creatine Kinase MB < 1.0, Creatine Kinase MB Relative Index 1.82, Troponin I 0.03, QW-Ohw-V-Type Natriuretic Peptide 8020H, Total Protein 6.8, Albumin 3.7, Albumin/Globulin Ratio 1.2, Thyroid Stimulating Hormone (TSH) 1.460, Free Thyroxine 1.04 12/22/20 18:12: Prothrombin Time 13.6, Prothromb Time International Ratio 1.02 CBC/BMP Laboratory Tests 12/22/20 17:47 Microbiology Microbiology 12/22/20 Respiratory Virus Panel (PCR) ([facility]) - Final, Complete Assessment/Plan Mrs. Oakes is an 80-year-old female with hyperlipidemia who presents with new onset atrial fibrillation and CHF. No prior history of heart disease and denies any chest pain recently. We will order an echocardiogram to evaluate for both A. fib and CHF. We'll add on a TSH for tomorrow morning for atrial fibrillation. Discussed with patient about anticoagulation, and she is agreeable to being on anticoagulant for stroke prevention in the setting of A. fib Plan / VTE VTE Prophylaxis Ordered?: Yes Plan Plan 1. New onset atrial fibrillation Converted to normal sinus after receiving Lopressor Blood pressures generally low Lopressor 25 mg twice a day with holding parameters Ordered for echocardiogram and TSH On apixaban for stroke prevention in the setting of atrial fibrillation 2. CHF Suggested by chest x-ray and Pro BNP She does have exertional dyspnea Otherwise mildly fluid overloaded We'll give Lasix 20 mg IV daily Monitor blood pressure as she generally have low blood pressure Echocardiogram ordered 3. Dyslipidemia Continue atorvastatin 4. DVT prophylaxis On apixaban NILA MARTIN DO Dec 22, 2020 20:59
[2020-12-22] MEDS ORDERED: LATANOPROST 0.005% OPHTH SOLN 2.5 ML OU SCH (21:00)
[2020-12-22] MEDS ORDERED: ONDANSETRON 4MG/2ML VIAL IV PRN (21:00)
[2020-12-22] MEDS: METOPROLOL TART 25 MG TABLET PO SCH (21:00)
[2020-12-22] MEDS ORDERED: ATORVASTATIN 10 MG TAB PO SCH (21:00)
[2020-12-22 22:04] VITALS: BP 96/64
[2020-12-23] VITALS: BP 100/55
[2020-12-23 04:00] VITALS: BP 116/56
[2020-12-23 04:57] LABS: HEMATOCRIT 36.5 % (36.0-47.0); MEAN CORPUSCULAR HEMOGLOBIN 32.3 pg (27.0-33.0); MEAN CORPUSCULAR HGB CONC 32.9 g/dl (32.0-36.5); MEAN CORPUSCULAR VOLUME 98.1 fl (80.0-96.0); PLATELET COUNT, AUTOMATED 214 10^3/uL (150-450); RED BLOOD COUNT 3.72 10^6/uL (4.00-5.40)
[2020-12-23 05:30] LABS: BLOOD UREA NITROGEN 24 MG/DL (7-18); CALCIUM LEVEL 7.8 MG/DL (8.8-10.2); CARBON DIOXIDE LEVEL 24 MEQ/L (21-32); CHLORIDE LEVEL 107 MEQ/L (98-107); CREATININE FOR GFR 0.95 MG/DL (0.55-1.30); GLOMERULAR FILTRATION RATE > 60.0 (>32); GLUCOSE, FASTING 107 MG/DL (70-100); POTASSIUM SERUM 4.8 MEQ/L (3.5-5.1); SODIUM LEVEL 138 MEQ/L (136-145)
[2020-12-23 07:45] VITALS: BP 121/59
[2020-12-23 08:46] VITALS: BP 121/59
[2020-12-23] MEDS: METOPROLOL TART 25 MG TABLET PO SCH (08:46)
[2020-12-23] MEDS ORDERED: FUROSEMIDE 40MG/4ML VIAL (J1940) IV SCH ×2 (09:00)
[2020-12-23] MEDS ORDERED: APIXABAN 5 MG TAB (ELIQUIS) PO SCH (09:00)
[2020-12-23] MEDS ORDERED: METO1TAB87 PO (10:04)
[2020-12-23] MEDS ORDERED: LASI20TA3 PO (10:04)
[2020-12-23] MEDS ORDERED: ELIQ5TAB PO (10:04)
[2020-12-23 11:38] VITALS: BP 110/60
--- NOTE | 2020-12-23 12:56 | DS.PDOC ---
Discharge Summary General Date of Admission Dec 22, 2020 at 20:44 Date of Discharge 12/23/20 Discharge Summary PROCEDURES PERFORMED DURING STAY: [None]. ADMITTING DIAGNOSES: 1. New onset atrial fibrillation 2. CHF 3. Dyslipidemia DISCHARGE DIAGNOSES: 1. New onset atrial fibrillation 2. CHF 3. Dyslipidemia Bradycardia COMPLICATIONS/CHIEF COMPLAINT: Atrial Fibrillation With Rvr/Chf. HISTORY OF PRESENT ILLNESS:Mrs. Oakes is an 80-year-old female with hyperlipidemia who presents with new onset atrial fibrillation and CHF. No prior history of heart disease and denies any chest pain recently. We will order an echocardiogram to evaluate for both A. fib and CHF. We'll add on a TSH for tomorrow morning for atrial fibrillation. Discussed with patient about anticoagulation, and she is agreeable to being on anticoagulant for stroke prevention in the setting of A. fib HOSPITAL COURSE: During hospital stay the following issues addressed Plan 1. New onset atrial fibrillation Converted to normal sinus after receiving Lopressor Pending echocardiogram and TSH within normal limit Started apixaban 2. CHF diastolic Suggested by chest x-ray and Pro BNP Patient received diuresis Echocardiogram ordered 3. Dyslipidemia Continue atorvastatin DISCHARGE MEDICATIONS: Please see below. ALLERGIES: Please see below. PHYSICAL EXAMINATION ON DISCHARGE: VITAL SIGNS: Please see below. Objective: GENERAL APPEARANCE: NAD HEENT: no scleral icterus, no JVD, EOMI CARDIOVASCULAR: S1S2 LUNGS: CTA ABDOMEN: soft & not tender w palpitation MUSCULOSKELETAL: no cyanosis, no swelling INTEGUMENT: no generalized pallor NEUROLOGICAL: cranial nerve function from 2-12 intact intact, follows commands, speech not dysarthric PSYCHIATRIC EXAMINATION: LABORATORY DATA: Please see below. PROGNOSIS: Fair ACTIVITY: [As tolerated]. DIET: Cardiac ITEMS TO FOLLOWUP ON ON OUTPATIENT: Follow-up with business insight and analytics manager in 3-5 days DISCHARGE CONDITION: [Stable]. TIME SPENT ON DISCHARGE:25 minutes. Vital Signs/I&Os Vital Signs Date Time Temp Pulse Resp B/P (MAP) Pulse Ox O2 Delivery O2 Flow Rate FiO2 12/23/20 11:38 97.3 52 18 110/60 (77) 98 Room Air I&O- Last 24 Hours up to 6 AM 12/23/20 06:00 Intake Total 1300 ml Balance 1300 ml Laboratory Data Labs 24H Laboratory Tests 2 12/22/20 17:47: Immature Granulocyte % (Auto) 0.2, Neutrophils (%) (Auto) 64.8, Lymphocytes (%) (Auto) 26.9, Monocytes (%) (Auto) 6.8, Eosinophils (%) (Auto) 0.9, Basophils (%) (Auto) 0.4, Neutrophils # (Auto) 5.8, Lymphocytes # (Auto) 2.4, Monocytes # (Auto) 0.6, Eosinophils # (Auto) 0.1, Basophils # (Auto) 0.0, Nucleated Red Blood Cells % (auto) 0.0, Anion Gap 8, Glomerular Filtration Rate 48.2, Calcium Level 8.4L, Total Bilirubin 0.5, Direct Bilirubin 0.2, Aspartate Amino Transf (AST/SGOT) 74H, Alanine Aminotransferase (ALT/SGPT) 140H, Alkaline Phosphatase 69, Total Creatine Kinase 55, Creatine Kinase MB < 1.0, Creatine Kinase MB Relative Index 1.82, Troponin I 0.03, JV-Avc-Y-Type Natriuretic Peptide 8020H, Total Protein 6.8, Albumin 3.7, Albumin/Globulin Ratio 1.2, Thyroid Stimulating Hormone (TSH) 1.460, Free Thyroxine 1.04 12/22/20 18:12: Prothrombin Time 13.6, Prothromb Time International Ratio 1.02 12/23/20 04:46: Nucleated Red Blood Cells % (auto) 0.0, Anion Gap 7L, Glomerular Filtration Rate > 60.0, Calcium Level 7.8L, Troponin I 0.04#, Thyroid Stimulating Hormone (TSH) 1.080 12/23/20 10:36: Troponin I 0.04 CBC/BMP Laboratory Tests 12/22/20 17:47 12/23/20 04:46 Microbiology Microbiology 12/22/20 Respiratory Virus Panel (PCR) ([facility]) - Final, Complete Discharge Medications Scheduled Apixaban (Eliquis) 5 Mg Tablet, 5 MG PO BID Atorvastatin Calcium (Atorvastatin Calcium) 10 Mg Tablet, 10 MG PO QHS, (Reported) Furosemide (Lasix) 20 Mg Tablet, 20 MG PO DAILY Latanoprost/Pf (Latanoprost 0.005% Eye Drop) 7.5 Ml Drops, 1 DROP OU QHS, (Reported) Metoprolol Tartrate (Metoprolol Tartrate) 25 Mg Tablet, 12.5 TAB PO BID Allergies Coded Allergies: No Known Allergies (Unverified , 09/07/20) SONDRA RYDER DO Dec 23, 2020 12:56
--- NOTE | 2020-12-23 20:47 | ECGEPIP ---
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
--- NOTE | 2020-12-25 11:39 | ECHO ---
DATE OF PROCEDURE: 12/23/2020 Age: 80 Gender: Female Height: 158 cm Weight: 76 kg REFERRING PHYSICIAN: Mohan Thacker DO INDICATION: Atrial fibrillation. MEASUREMENTS: IVS 1.0 cm LV 4.3 cm LVPW 1.0 cm LA 4.5 cm Aorta 3.2 cm RV 2.7 cm IVC 2.7 cm FINDINGS: This study is of good technical quality. Underlying sinus rhythm. Left ventricle is normal size. Estimated LVEF approximately 60% to 65%, no segmental wall motion abnormalities are noted. Right ventricle appears at least mildly dilated and mildly hypokinetic. There is severe biatrial enlargement. Aortic valve has three cusps and normal mobility. Mitral valve exhibits prominent degenerative abnormalities. There is severe restriction of leaflet mobility. Based on some imaging, I cannot even rule out the presence of vegetations, but it seems rather unlikely. Based on 2D imaging, I assume at least moderate if not severe mitral stenosis. Tricuspid and pulmonic valves appear normal. No pericardial effusion is noted. Inferior vena cava is markedly dilated and there is no appreciable collapse with inspiration indicative of very high central venous pressure. Aortic root, aortic arch, and visualized segment of the abdominal aorta all appear normal. Doppler interrogation of the aortic valve reveals no stenosis or insufficiency. There is approximately moderate mitral insufficiency and likely severe mitral stenosis with peak gradient across the valve 29 and mean gradient 11 mmHg. There is at least moderate tricuspid insufficiency. Calculated pulmonary artery pressure is at least 70 to 75 mmHg corresponding to severe pulmonary hypertension. Pulmonic valve is functionally competent. Evaluation of diastolic function is inaccurate due to underlying mitral valvular disease. CONCLUSIONS: 1. Study is of acceptable technical quality, underlying sinus rhythm. 2. Normal LV size and systolic function. 3. Very prominent degenerative abnormalities of the mitral valve with resulting severe stenosis and moderate insufficiency, cannot completely rule out the presence of vegetation of mitral valve. 4. At least moderate tricuspid insufficiency. 5. Very high central venous pressure and likely severe pulmonary hypertension. 6. Severe biatrial enlargement. MTDD
== END 2020-12-23 14:55 | disposition home or self-care (01) | DRG 309 ==
LOC: M ED 17:31 → M ED INP 20:44 → M PCU 21:57
PROVIDERS: ADMIT Internal Medicine; ATTEND Internal Medicine
DX: I48.91 Unspecified atrial fibrillation (principal); I50.32 Chronic diastolic (congestive) heart failure; E78.5 Hyperlipidemia, unspecified; Z79.899 Other long term (current) drug therapy; K21.9 Gastro-esophageal reflux disease without esophagitis; E55.9 Vitamin D deficiency, unspecified; Z98.41 Cataract extraction status, right eye; Z98.42 Cataract extraction status, left eye

== ENCOUNTER → 2020-12-29 | Outpatient (CLI) | payer MEDICARE, OTHER ==
[~2020-12-29] MED LIST changes: +ATOR1TAB19 PO; +ELIQ5TAB PO; +LASI20TA3 PO; +LATA0.0015 OU; +METO1TAB87 PO; -NS 1,000 ML IV ONE
== END ==
LOC: M LABSMTC 11:08
PROVIDERS: ATTEND Internal Medicine Cardiovascular Disease
DX: Z11.52 Encounter for screening for COVID-19 (principal)

== ENCOUNTER → 2021-08-06 | Outpatient (REF) | payer MEDICARE, OTHER ==
[2021-08-06 13:30] LABS: BASO % 0.6 % (0.0-1.0); EOS # 0.2 10^3/uL (0.0-0.5); EOS % 2.5 % (0.0-3.0); HEMATOCRIT 36.6 % (36.0-47.0); HEMOGLOBIN 11.7 g/dl (12.0-15.5); LYMPH # 1.8 10^3/uL (1.5-5.0); LYMPH % 27.5 % (24.0-44.0); MEAN CORPUSCULAR HEMOGLOBIN 32.4 pg (27.0-33.0); MEAN CORPUSCULAR VOLUME 101.4 fl (80.0-96.0); MONO # 0.6 10^3/uL (0.0-0.8); MONO % 8.6 % (2.0-8.0); NEUTROPHILS # 3.9 10^3/uL (1.5-8.5); NEUTROPHILS % 60.5 % (36.0-66.0); PLATELET COUNT, AUTOMATED 307 10^3/uL (150-450); RED BLOOD COUNT 3.61 10^6/uL (4.00-5.40); WHITE BLOOD COUNT 6.4 10^3/uL (4.0-10.0)
[2021-08-06 13:38] LABS: PERCENT SATURATION 21.1 % (13.2-45.0)
[2021-08-06 13:46] LABS: FOLATE 20.9 NG/ML
== END ==
LOC: M SFHCADAM 08:45
PROVIDERS: ATTEND Physician Assistant Medical
DX: D50.9 Iron deficiency anemia, unspecified (principal)

== ENCOUNTER → 2021-08-28 | Outpatient (CLI) | payer MEDICARE, OTHER ==
--- NOTE | 2021-08-28 14:42 | REPMRS ---
Patient History The patient states she had a clinical breast exam in August 2021. Family history of colorectal cancer at age 50 or over in sister. No Hormone Replacement Therapy Patient states no breast complaints today. Patient has signed MRS History Sheet. Digital Woman Screen Mammo: August 28, 2021 - Exam #: [id number] Bilateral CC and MLO view(s) were taken. Technologist: Sharonda Hinkle, Technologist Prior study comparison: August 23, 2020, bilateral digital woman screen mammo performed at [facility]. July 21, 2019, bilateral digital woman screen mammo performed at [facility]. FINDINGS: There are scattered fibroglandular densities. Screening. Digital screening (2D) mammography was performed bilaterally in the CC and MLO projections. Additionally, breast tomosynthesis (3D mammography) was performed bilaterally in the CC and MLO projections. Todays exam was compared to the prior exam/exams. By history, the patient has no complaints of a palpable breast abnormality or other significant breast complaints. The Volpara volumetric breast density category is B, there are scattered areas of fibroglandular densities. The breasts are unchanged in size and shape. There are no rafael-soft tissue densities or spiculated masses. There is no internal architectural distortion. There are no suspicious rafael-calcific clusters. Skin thickening or nipple retraction is not present. IMPRESSION: BI-RADS Category 2- Benign Findings. There is no evidence of malignant alteration of the breasts. Followup examination recommended in one year. The lifetime Tyrer-Cuzick score is 1.2% This mammogram was read with the assistance of [employer],an FDA approved computer aided detection system for mammography. Negative x-ray reports should not delay surgical consultation if a dominant or clinically suspicious mass is present. Not all breast cancers can be identified by mammography. Therefore, we recommend that you continue to perform regular breast self-examination and physical examination and then promptly contact your physician of any concerns or changes. Adenosis and dense breasts may obscure an underlying neoplasm. No significant changes when compared with prior studies. Assessment: BI-RADS/ACR category 2 mammogram. Benign Findings. Recommendation Routine screening mammogram of both breasts in 1 year. Electronically Signed By: Telly Zavala MD 08/28/21 [id number]
== END ==
LOC: M WHC 09:23
PROVIDERS: ATTEND Nurse Practitioner Women's Health
DX: Z12.31 Encounter for screening mammogram for malignant neoplasm of breast (principal); Z80.0 Family history of malignant neoplasm of digestive organs
CPT/HCPCS: 77063; 77067; G0463

== ENCOUNTER → 2022-01-11 | Outpatient (REF) | payer MEDICARE, OTHER ==
[2022-01-11 15:09] LABS: BASO # 0.1 10^3/uL (0.0-0.2); BASO % 0.7 % (0.0-1.0); EOS # 0.3 10^3/uL (0.0-0.5); EOS % 4.2 % (0.0-3.0); HEMATOCRIT 34.3 % (36.0-47.0); HEMOGLOBIN 11.2 g/dl (12.0-15.5); LYMPH # 1.7 10^3/uL (1.5-5.0); LYMPH % 23.9 % (24.0-44.0); MEAN CORPUSCULAR HEMOGLOBIN 31.7 pg (27.0-33.0); MEAN CORPUSCULAR HGB CONC 32.7 g/dl (32.0-36.5); MEAN CORPUSCULAR VOLUME 97.2 fl (80.0-96.0); MONO # 0.6 10^3/uL (0.0-0.8); MONO % 8.2 % (2.0-8.0); NEUTROPHILS # 4.5 10^3/uL (1.5-8.5); NEUTROPHILS % 62.9 % (36.0-66.0); PLATELET COUNT, AUTOMATED 288 10^3/uL (150-450); RED BLOOD COUNT 3.53 10^6/uL (4.00-5.40); WHITE BLOOD COUNT 7.2 10^3/uL (4.0-10.0)
[2022-01-11 15:23] LABS: ALBUMIN 3.5 GM/DL (3.2-5.2); ALT/SGPT 37 U/L (12-78); BILIRUBIN,TOTAL 0.6 MG/DL (0.2-1.0); BLOOD UREA NITROGEN 19 MG/DL (7-18); CALCIUM LEVEL 9.1 MG/DL (8.8-10.2); CARBON DIOXIDE LEVEL 29 MEQ/L (21-32); CHLORIDE LEVEL 109 MEQ/L (98-107); CHOLESTEROL LEVEL 129 MG/DL (<200); CHOLESTEROL RISK RATIO 3.225 (<5); CREATININE FOR GFR 0.78 MG/DL (0.55-1.30); FERRITIN 50 NG/ML (8-252); GLOMERULAR FILTRATION RATE > 60.0 (>32); GLUCOSE, FASTING 100 MG/DL (70-100); HDL CHOLESTEROL 40 MG/DL (>40); IRON (FE) 44 UG/DL (50-170); LDL CHOLESTEROL 71 MG/DL (<100); NON-HDL-C 89 MG/DL; POTASSIUM SERUM 4.6 MEQ/L (3.5-5.1); SODIUM LEVEL 142 MEQ/L (136-145); THYROID STIMULATING HORMONE 0.743 uIU/ML (0.358-3.740); TOTAL IRON BINDING CAPACITY 275 UG/DL (250-450); TOTAL PROTEIN 6.9 GM/DL (6.4-8.2); TRIGLYCERIDES LEVEL 89 MG/DL (<150)
[2022-01-11 15:25] LABS: FOLATE 21.4 NG/ML; TOTAL 25(OH) VITAMIN D 48.4 NG/ML (30.0-100.0); VITAMIN B12 LEVEL 657 PG/ML
[2022-01-11 15:38] LABS: HEMOGLOBIN A1c 5.4 %
== END ==
LOC: M SFHCADAM 11:38
PROVIDERS: ATTEND Physician Assistant Medical
DX: D50.9 Iron deficiency anemia, unspecified (principal); K21.9 Gastro-esophageal reflux disease without esophagitis; E78.2 Mixed hyperlipidemia; E55.9 Vitamin D deficiency, unspecified; Z79.899 Other long term (current) drug therapy

== ENCOUNTER → 2022-01-15 | Outpatient (CLI) | payer MEDICARE, OTHER | LOC: M PLAIMG 11:21 | PROVIDERS: ATTEND Otolaryngology | DX: S02.2XXA Fracture of nasal bones, initial encounter for closed fracture (principal); X58.XXXA Exposure to other specified factors, initial encounter; Y92.9 Unspecified place or not applicable; Y93.9 Activity, unspecified; Y99.9 Unspecified external cause status ==

== ENCOUNTER → 2022-03-08 | Outpatient (CLI) | payer MEDICARE, OTHER ==
[2022-03-08 14:52] LABS: HEMATOCRIT 32.8 % (36.0-47.0); HEMOGLOBIN 10.9 g/dl (12.0-15.5); MEAN CORPUSCULAR HEMOGLOBIN 31.9 pg (27.0-33.0); MEAN CORPUSCULAR HGB CONC 33.2 g/dl (32.0-36.5); MEAN CORPUSCULAR VOLUME 95.9 fl (80.0-96.0); PLATELET COUNT, AUTOMATED 242 10^3/uL (150-450); RED BLOOD COUNT 3.42 10^6/uL (4.00-5.40); WHITE BLOOD COUNT 7.9 10^3/uL (4.0-10.0)
[2022-03-08 15:21] LABS: ALBUMIN 3.4 GM/DL (3.2-5.2); BILIRUBIN,TOTAL 0.6 MG/DL (0.2-1.0); CREATININE FOR GFR 1.01 MG/DL (0.55-1.30); GLOMERULAR FILTRATION RATE 55.9 (>32); MAGNESIUM LEVEL 2.2 MG/DL (1.8-2.4); POTASSIUM SERUM 4.5 MEQ/L (3.5-5.1); THYROID STIMULATING HORMONE 1.49 uIU/ML (0.358-3.740); TOTAL PROTEIN 6.2 GM/DL (6.4-8.2)
== END ==
LOC: M WUC 13:41
PROVIDERS: ATTEND Physician Assistant
DX: I48.0 Paroxysmal atrial fibrillation (principal)

== ENCOUNTER → 2022-04-08 | Outpatient (CLI) | payer MEDICARE, OTHER | LOC: M RAD 12:43 | PROVIDERS: ATTEND Physician Assistant ==

== ENCOUNTER 2022-05-07 10:43 | Inpatient (IN) | payer MEDICARE, OTHER ==
[2022-05-07] VITALS (11 sets, daily range): BP systolic 110–156; BP diastolic 50–66
[~2022-05-07] VITALS: Ht 160 cm; Wt 70.2 kg
[2022-05-07] MEDS ORDERED: AMLO1TAB24 (11:58)
[2022-05-07] MEDS ORDERED: AMIO200T49 PO (11:58)
[2022-05-07] MEDS ORDERED: LOSA25TA13 PO (11:58)
[2022-05-07 12:11] LABS: BASO % 0.2 % (0.0-1.0); EOS % 0.2 % (0.0-3.0); LYMPH # 1.1 10^3/uL (1.5-5.0); LYMPH % 18.5 % (24.0-44.0); MEAN CORPUSCULAR HEMOGLOBIN 30.6 pg (27.0-33.0); MEAN CORPUSCULAR HGB CONC 31.7 g/dl (32.0-36.5); MEAN CORPUSCULAR VOLUME 96.5 fl (80.0-96.0); MONO # 0.4 10^3/uL (0.0-0.8); MONO % 7.5 % (2.0-8.0); NEUTROPHILS # 4.3 10^3/uL (1.5-8.5); NEUTROPHILS % 73.3 % (36.0-66.0); PLATELET COUNT, AUTOMATED 344 10^3/uL (150-450); RED BLOOD COUNT 1.44 10^6/uL (4.00-5.40); WHITE BLOOD COUNT 5.9 10^3/uL (4.0-10.0)
[2022-05-07 12:15] LABS: HEMATOCRIT 13.9 % (36.0-47.0)
[2022-05-07 12:17] LABS: HEMOGLOBIN 4.4 g/dl (12.0-15.5)
[2022-05-07 12:25] LABS: INR 1.34
[2022-05-07 12:26] LABS: PARTIAL THROMBOPLASTIN TIME 27.7 SECONDS (25.9-37.0)
[2022-05-07 12:28] LABS: CK-MB VALUE MASS 1.2 NG/ML (<3.6); MB/CK RELATIVE INDEX 2.93 (< OR =4)
[2022-05-07 12:36] LABS: ALBUMIN 2.4 GM/DL (3.2-5.2); ALT/SGPT 18 U/L (12-78); BILIRUBIN,DIRECT < 0.1 MG/DL (0.0-0.2); BILIRUBIN,TOTAL 0.3 MG/DL (0.2-1.0); FREE T4 1.28 NG/DL (0.76-1.46); LIPASE 132 U/L (73-393); NT-PRO BNP 1340 PG/ML (<450); TOTAL PROTEIN 4.5 GM/DL (6.4-8.2)
[2022-05-07 13:21] LABS: CK-MB VALUE MASS 1.2 NG/ML (<3.6); MB/CK RELATIVE INDEX 4.8 (< OR =4)
[2022-05-07 13:55] LABS: RSV AMPLIFICATION NEGATIVE (NEGATIVE)
[2022-05-07] MEDS ORDERED: FURO20TA2 PO (15:10)
[2022-05-07] MEDS ORDERED: ELIQ5TAB PO (15:10)
[2022-05-07] MEDS ORDERED: HOME MED LIST COMPLETE! XX SCH (15:15)
[2022-05-07] MEDS ORDERED: MAALOX 30 ML SUSP *UDC PO PRN (15:20)
[2022-05-07] MEDS ORDERED: MOM 30ML SUSPENSION UDC PO PRN (15:20)
[2022-05-07] MEDS ORDERED: ACETAMINOPHEN TAB 650MG DOSE (2X325MG) PO PRN (15:20)
[2022-05-07 16:22] LABS: CK-MB VALUE MASS < 1.0 NG/ML (<3.6); CPK CREATINE PHOSPHOKINASE 37 U/L (26-192)
[2022-05-07 17:38] LABS: BASO % 0.4 % (0.0-1.0); EOS % 0.2 % (0.0-3.0); LYMPH # 1.7 10^3/uL (1.5-5.0); LYMPH % 30.8 % (24.0-44.0); MEAN CORPUSCULAR HEMOGLOBIN 29.4 pg (27.0-33.0); MEAN CORPUSCULAR HGB CONC 31.6 g/dl (32.0-36.5); MONO # 0.5 10^3/uL (0.0-0.8); NEUTROPHILS # 3.4 10^3/uL (1.5-8.5); NEUTROPHILS % 59.4 % (36.0-66.0); PLATELET COUNT, AUTOMATED 317 10^3/uL (150-450); RED BLOOD COUNT 1.87 10^6/uL (4.00-5.40); WHITE BLOOD COUNT 5.7 10^3/uL (4.0-10.0)
[2022-05-07 17:41] LABS: HEMATOCRIT 17.4 % (36.0-47.0); HEMOGLOBIN 5.5 g/dl (12.0-15.5)
[2022-05-07 18:08] LABS: ALT/SGPT 21 U/L (12-78); BILIRUBIN,TOTAL 0.8 MG/DL (0.2-1.0); BLOOD UREA NITROGEN 31 MG/DL (7-18); CALCIUM LEVEL 8.4 MG/DL (8.8-10.2); CARBON DIOXIDE LEVEL 31 MEQ/L (21-32); CHLORIDE LEVEL 105 MEQ/L (98-107); CREATININE FOR GFR 0.89 MG/DL (0.55-1.30); GLOMERULAR FILTRATION RATE > 60.0 (>32); GLUCOSE, FASTING 98 MG/DL (70-100); MAGNESIUM LEVEL 2.2 MG/DL (1.8-2.4); SODIUM LEVEL 140 MEQ/L (136-145); TOTAL PROTEIN 5.7 GM/DL (6.4-8.2)
[2022-05-07] MEDS: PANTOPRAZOLE 40MG VIAL IV SCH (20:25)
[2022-05-07] MEDS: LOSARTAN 25 MG TAB PO SCH (20:27)
[2022-05-07] MEDS: SUCRALFATE SUSP 1GM/10ML UD PO SCH (20:27)
[2022-05-07] MEDS: ATORVASTATIN 10 MG TAB PO SCH (20:28)
[2022-05-07 21:57] LABS: CK-MB VALUE MASS < 1.0 NG/ML (<3.6); CPK CREATINE PHOSPHOKINASE 41 U/L (26-192); MB/CK RELATIVE INDEX 2.44 (< OR =4)
[2022-05-08] VITALS (8 sets, daily range): BP systolic 120–153; BP diastolic 56–66
[2022-05-08 06:02] LABS: BASO % 0.3 % (0.0-1.0); EOS # 0.1 10^3/uL (0.0-0.5); EOS % 0.7 % (0.0-3.0); HEMATOCRIT 29.3 % (36.0-47.0); LYMPH # 1.4 10^3/uL (1.5-5.0); LYMPH % 20.1 % (24.0-44.0); MEAN CORPUSCULAR HEMOGLOBIN 30.3 pg (27.0-33.0); MEAN CORPUSCULAR HGB CONC 33.4 g/dl (32.0-36.5); MEAN CORPUSCULAR VOLUME 90.7 fl (80.0-96.0); MONO # 0.6 10^3/uL (0.0-0.8); MONO % 8.6 % (2.0-8.0); NEUTROPHILS # 4.9 10^3/uL (1.5-8.5); NEUTROPHILS % 69.9 % (36.0-66.0); PLATELET COUNT, AUTOMATED 274 10^3/uL (150-450); RED BLOOD COUNT 3.23 10^6/uL (4.00-5.40)
[2022-05-08 06:15] LABS: HEMOGLOBIN 9.8 g/dl (12.0-15.5)
[2022-05-08 06:23] LABS: CALCIUM LEVEL 7.9 MG/DL (8.8-10.2); CREATININE FOR GFR 0.99 MG/DL (0.55-1.30); GLOMERULAR FILTRATION RATE 57.2 (>32); MAGNESIUM LEVEL 2.3 MG/DL (1.8-2.4); POTASSIUM SERUM 4.3 MEQ/L (3.5-5.1)
[2022-05-08] MEDS ORDERED: AMIODARONE 200 MG TAB (PACERONE) PO SCH (09:00)
[2022-05-08] MEDS: PANTOPRAZOLE 40MG VIAL IV SCH ×2 (09:35→20:27)
[2022-05-08] MEDS: SUCRALFATE SUSP 1GM/10ML UD PO SCH ×4 (09:35→20:26)
[2022-05-08] MEDS: FUROSEMIDE 20 MG TAB PO SCH (09:35)
[2022-05-08] MEDS: LOSARTAN 25 MG TAB PO SCH (20:26)
[2022-05-08] MEDS: ATORVASTATIN 10 MG TAB PO SCH (20:26)
[2022-05-09 06:00] VITALS: BP 136/64
[2022-05-09 06:17] LABS: BASO % 0.4 % (0.0-1.0); EOS # 0.1 10^3/uL (0.0-0.5); EOS % 1.2 % (0.0-3.0); HEMATOCRIT 27.4 % (36.0-47.0); HEMOGLOBIN 9.2 g/dl (12.0-15.5); LYMPH # 1.6 10^3/uL (1.5-5.0); LYMPH % 23.3 % (24.0-44.0); MEAN CORPUSCULAR HEMOGLOBIN 30.6 pg (27.0-33.0); MEAN CORPUSCULAR HGB CONC 33.6 g/dl (32.0-36.5); MONO # 0.6 10^3/uL (0.0-0.8); MONO % 8.2 % (2.0-8.0); NEUTROPHILS # 4.6 10^3/uL (1.5-8.5); NEUTROPHILS % 66.6 % (36.0-66.0); PLATELET COUNT, AUTOMATED 272 10^3/uL (150-450); RED BLOOD COUNT 3.01 10^6/uL (4.00-5.40); WHITE BLOOD COUNT 6.9 10^3/uL (4.0-10.0)
[2022-05-09 06:29] LABS: BLOOD UREA NITROGEN 19 MG/DL (7-18); CARBON DIOXIDE LEVEL 25 MEQ/L (21-32); CHLORIDE LEVEL 113 MEQ/L (98-107); CREATININE FOR GFR 0.84 MG/DL (0.55-1.30); GLOMERULAR FILTRATION RATE > 60.0 (>32); GLUCOSE, FASTING 91 MG/DL (70-100); MAGNESIUM LEVEL 2.2 MG/DL (1.8-2.4); SODIUM LEVEL 145 MEQ/L (136-145)
[2022-05-09] MEDS: SUCRALFATE SUSP 1GM/10ML UD PO SCH ×2 (08:02→12:00)
[2022-05-09] MEDS: FUROSEMIDE 20 MG TAB PO SCH (08:11)
[2022-05-09] MEDS: PANTOPRAZOLE 40MG VIAL IV SCH (08:12)
[2022-05-09 12:09] VITALS: BP 151/68
[2022-05-09] MEDS ORDERED: fentaNYL 100 MCG/2 ML INJECTION As Ordered ONE (13:43)
[2022-05-09] MEDS ORDERED: propofoL 200 MG/20 ML VIAL As Ordered ONE (13:50)
[2022-05-09 14:00] VITALS: BP 140/68
[2022-05-09] MEDS ORDERED: SUCR1TA PO (15:24)
[2022-05-09] MEDS ORDERED: FERR325T3 PO (15:24)
[2022-05-09] MEDS ORDERED: PANT40TA29 PO (15:24)
[2022-05-09 16:07] LABS: HEMATOCRIT 29.7 % (36.0-47.0); HEMOGLOBIN 9.7 g/dl (12.0-15.5)
[2022-05-09 16:40] LABS: PERCENT SATURATION 7.1 % (13.2-45.0)
[2022-05-09 17:18] LABS: FOLATE 17.9 NG/ML (>5.4)
[2022-05-09 17:30] LABS: CK-MB VALUE MASS < 1.0 NG/ML (<3.6); CPK CREATINE PHOSPHOKINASE 44 U/L (26-192); MB/CK RELATIVE INDEX 2.27 (< OR =4)
[2022-05-09] MEDS ORDERED: SUCRALFATE 1 GM TAB PO SCH (21:00)
[2022-05-09] MEDS ORDERED: PANTOPRAZOLE 40MG TAB (PROTONIX) PO SCH (21:00)
== END 2022-05-09 17:59 | disposition home or self-care (01) | DRG 812 ==
LOC: EDBD 10:43 → M ED 10:43 → M ED INP 15:18 → ENRESERV 17:27 → M MSPAV 18:15
PROVIDERS: ADMIT Family Medicine; ATTEND Family Medicine
PROC: 0DJ08ZZ Inspection of Upper Intestinal Tract, Via Natural or Artificial Opening Endoscopic (ICD-10-PCS; principal; 2022-05-09 13:00)
DX: D50.9 Iron deficiency anemia, unspecified (principal); I48.0 Paroxysmal atrial fibrillation; K21.9 Gastro-esophageal reflux disease without esophagitis; I25.10 Atherosclerotic heart disease of native coronary artery without angina pectoris; K29.70 Gastritis, unspecified, without bleeding; I44.7 Left bundle-branch block, unspecified; E78.5 Hyperlipidemia, unspecified; K25.9 Gastric ulcer, unspecified as acute or chronic, without hemorrhage or perforation; K44.9 Diaphragmatic hernia without obstruction or gangrene; E55.9 Vitamin D deficiency, unspecified; Z98.41 Cataract extraction status, right eye; Z98.42 Cataract extraction status, left eye; Z95.1 Presence of aortocoronary bypass graft; Z79.899 Other long term (current) drug therapy

== ENCOUNTER → 2022-06-28 | Outpatient (REF) | payer MEDICARE, OTHER ==
[~2022-06-28] MED LIST changes: +AMIO200T49 PO; +AMLO1TAB24; +FERR325T3 PO; +FURO20TA2 PO; +LOSA25TA13 PO; +PANT40TA29 PO; +SUCR1TA PO
[2022-06-28 12:51] LABS: BASO % 0.7 % (0.0-1.0); EOS # 0.1 10^3/uL (0.0-0.5); EOS % 1.7 % (0.0-3.0); HEMATOCRIT 33.7 % (36.0-47.0); HEMOGLOBIN 10.7 g/dl (12.0-15.5); LYMPH # 1.3 10^3/uL (1.5-5.0); LYMPH % 27.3 % (24.0-44.0); MEAN CORPUSCULAR HEMOGLOBIN 31.8 pg (27.0-33.0); MEAN CORPUSCULAR HGB CONC 31.8 g/dl (32.0-36.5); MONO # 0.3 10^3/uL (0.0-0.8); MONO % 7.2 % (2.0-8.0); NEUTROPHILS # 2.9 10^3/uL (1.5-8.5); NEUTROPHILS % 63.1 % (36.0-66.0); PLATELET COUNT, AUTOMATED 306 10^3/uL (150-450); RED BLOOD COUNT 3.37 10^6/uL (4.00-5.40); WHITE BLOOD COUNT 4.6 10^3/uL (4.0-10.0)
[2022-06-28 13:31] LABS: ALBUMIN 3.7 GM/DL (3.2-5.2); ALT/SGPT 49 U/L (12-78); BILIRUBIN,TOTAL 0.4 MG/DL (0.2-1.0); BLOOD UREA NITROGEN 19 MG/DL (7-18); CARBON DIOXIDE LEVEL 30 MEQ/L (21-32); CHLORIDE LEVEL 105 MEQ/L (98-107); CREATININE FOR GFR 0.91 MG/DL (0.55-1.30); FERRITIN 21 NG/ML (8-252); GLOMERULAR FILTRATION RATE > 60.0 (>32); GLUCOSE, FASTING 90 MG/DL (70-100); IRON (FE) 39 UG/DL (50-170); POTASSIUM SERUM 3.9 MEQ/L (3.5-5.1); SODIUM LEVEL 139 MEQ/L (136-145); TOTAL IRON BINDING CAPACITY 354 UG/DL (250-450); TOTAL PROTEIN 7.3 GM/DL (6.4-8.2)
== END ==
LOC: M SFHCADAM 08:04
PROVIDERS: ATTEND Physician Assistant
DX: D50.9 Iron deficiency anemia, unspecified (principal); Z87.19 Personal history of other diseases of the digestive system; K21.9 Gastro-esophageal reflux disease without esophagitis

== ENCOUNTER 2022-10-07 17:51 | Emergency (ER) | payer MEDICARE, OTHER ==
[~2022-10-07] VITALS: Ht 160 cm; Wt 70.5 kg
[2022-10-07] MEDS ORDERED: METO50TA7 (18:08)
[2022-10-07 20:42] LABS: BASO # 0.1 10^3/uL (0.0-0.2); BASO % 0.7 % (0.0-1.0); EOS # 0.1 10^3/uL (0.0-0.5); EOS % 1.5 % (0.0-3.0); HEMATOCRIT 31.1 % (36.0-47.0); HEMOGLOBIN 9.9 g/dl (12.0-15.5); LYMPH # 1.5 10^3/uL (1.5-5.0); LYMPH % 20.9 % (24.0-44.0); MEAN CORPUSCULAR HEMOGLOBIN 32.2 pg (27.0-33.0); MEAN CORPUSCULAR HGB CONC 31.8 g/dl (32.0-36.5); MEAN CORPUSCULAR VOLUME 101.3 fl (80.0-96.0); MONO # 0.5 10^3/uL (0.0-0.8); NEUTROPHILS # 5.1 10^3/uL (1.5-8.5); NEUTROPHILS % 69.5 % (36.0-66.0); PLATELET COUNT, AUTOMATED 293 10^3/uL (150-450); RED BLOOD COUNT 3.07 10^6/uL (4.00-5.40); WHITE BLOOD COUNT 7.3 10^3/uL (4.0-10.0)
[2022-10-07 21:01] LABS: INR 1.22; PROTHROMBIN TIME 15.7 SECONDS (12.5-14.5)
[2022-10-07 21:03] LABS: BILIRUBIN,DIRECT 0.2 MG/DL (<0.4)
[2022-10-07 21:09] LABS: ALBUMIN 3.8 G/DL (3.2-5.2); BILIRUBIN,TOTAL 0.6 MG/DL (0.3-1.2); CALCIUM LEVEL 8.7 MG/DL (8.3-10.6); CK-MB VALUE MASS 1.2 NG/ML (<3.6); CREATININE FOR GFR 1.03 MG/DL (0.55-1.30); GLOMERULAR FILTRATION RATE 54.5 (>32); MB/CK RELATIVE INDEX 1.26 (< OR =4); POTASSIUM SERUM 5.5 MMOL/L (3.5-5.1); TOTAL PROTEIN 6.9 G/DL (5.7-8.2)
[2022-10-07] MEDS ORDERED: ISOVUE-370 76% 100ML VIAL As Ordered ONE (21:21)
[2022-10-07 21:35] LABS: ABG BASE EXCESS 0.7 (-2.0-2.0); ABG HCO3 24.3 MEQ/L (22.0-26.0); ABG O2 SATURATION 95.2 % (95.0-99.0); ABG PARTIAL PRESSURE CO2 35.3 mmHg (35.0-45.0); ABG PARTIAL PRESSURE O2 77.8 mmHg (75.0-100.0); ABG STANDARD HCO3 25.1 MEQ/L (22.0-26.0); ABG TOTAL CO2 25.4 MEQ/L (23.0-31.0); ABG pH (ARTERIAL) 7.456 UNITS (7.350-7.450)
[2022-10-07 23:15] VITALS: BP 136/74
[2022-10-07] MEDS ORDERED: ALBU6.7H6 INH (23:17)
== END 2022-10-07 23:54 | disposition home or self-care (01) ==
LOC: M ED 17:51
DX: B97.4 Respiratory syncytial virus as the cause of diseases classified elsewhere (principal); I48.0 Paroxysmal atrial fibrillation; K21.9 Gastro-esophageal reflux disease without esophagitis; Z79.51 Long term (current) use of inhaled steroids; Z79.811 Long term (current) use of aromatase inhibitors; Z79.899 Other long term (current) drug therapy; Z79.01 Long term (current) use of anticoagulants
CPT/HCPCS: 36415; 36600; 71045; 71275; 80048; 80076; 82550; 82553; 82803; 83605; 83880; 84484; 85025; 85610; 87040; 87486; 87581; 87633; 87798; 93041; 94760; 99285; Q9967

== ENCOUNTER → 2022-10-15 | Outpatient (REF) | payer MEDICARE, OTHER ==
[~2022-10-15] MED LIST changes: +ALBU6.7H6 INH; +METO50TA7
[2022-10-15 14:48] LABS: HEMATOCRIT 33.9 % (36.0-47.0); HEMOGLOBIN 10.6 g/dl (12.0-15.5); MEAN CORPUSCULAR HEMOGLOBIN 32.3 pg (27.0-33.0); MEAN CORPUSCULAR HGB CONC 31.3 g/dl (32.0-36.5); MEAN CORPUSCULAR VOLUME 103.4 fl (80.0-96.0); PLATELET COUNT, AUTOMATED 342 10^3/uL (150-450); RED BLOOD COUNT 3.28 10^6/uL (4.00-5.40); WHITE BLOOD COUNT 6.7 10^3/uL (4.0-10.0)
[2022-10-15 16:18] LABS: ALBUMIN 3.6 G/DL (3.2-5.2); BILIRUBIN,TOTAL 0.8 MG/DL (0.3-1.2); CALCIUM LEVEL 9.1 MG/DL (8.3-10.6); CREATININE FOR GFR 1.02 MG/DL (0.55-1.30); GLOMERULAR FILTRATION RATE 55.1 (>32); POTASSIUM SERUM 4.4 MMOL/L (3.5-5.1); TOTAL PROTEIN 7.1 G/DL (5.7-8.2)
== END ==
LOC: M SFHCADAM 11:49
PROVIDERS: ATTEND Physician Assistant Medical
DX: R79.89 Other specified abnormal findings of blood chemistry (principal); D50.9 Iron deficiency anemia, unspecified

== ENCOUNTER → 2022-10-29 | Outpatient (CLI) | payer MEDICARE, OTHER | LOC: M WHC 09:27 | PROVIDERS: ATTEND Physician Assistant Medical | DX: R79.89 Other specified abnormal findings of blood chemistry (principal); K80.20 Calculus of gallbladder without cholecystitis without obstruction ==

== ENCOUNTER → 2022-12-13 | Outpatient (CLI) | payer MEDICARE, OTHER ==
[~2022-12-13] MED LIST changes: +ATOR40TA75 PO; +DIGO0.123 PO; +ENTR1TAB PO; +FARX1TAB3 PO; +FURO40TA2 PO; +LOSA50TA28 PO; +METO1TAB32 PO; +VANI1CRE5 TOP
[2022-12-13 11:51] LABS: BASO % 0.6 % (0.0-1.0); EOS % 1.6 % (0.0-3.0); HEMATOCRIT 32.9 % (36.0-47.0); HEMOGLOBIN 10.2 g/dl (12.0-15.5); LYMPH % 19.4 % (24.0-44.0); MEAN CORPUSCULAR HEMOGLOBIN 31.8 pg (27.0-33.0); MEAN CORPUSCULAR VOLUME 102.5 fl (80.0-96.0); MONO % 7.4 % (2.0-8.0); NEUTROPHILS % 70.7 % (36.0-66.0); PLATELET COUNT, AUTOMATED 251 10^3/uL (150-450); RED BLOOD COUNT 3.21 10^6/uL (4.00-5.40); WHITE BLOOD COUNT 6.9 10^3/uL (4.0-10.0)
[2022-12-13 11:52] LABS: EOS # 0.1 10^3/uL (0.0-0.5); LYMPH # 1.3 10^3/uL (1.5-5.0); MONO # 0.5 10^3/uL (0.0-0.8); NEUTROPHILS # 4.8 10^3/uL (1.5-8.5)
[2022-12-13 12:13] LABS: CPK CREATINE PHOSPHOKINASE 91 U/L (34-145); IRON (FE) 29 UG/DL (50-170); PERCENT SATURATION 9.1 % (13.2-45.0); TOTAL IRON BINDING CAPACITY 320 UG/DL (250-425)
[2022-12-13 12:14] LABS: ALBUMIN 3.5 G/DL (3.2-5.2); ALKALINE PHOSPHATASE 96 U/L (46-116); ALT/SGPT 30 U/L (7.0-40); AST/SGOT < 8 U/L (<34); BILIRUBIN,TOTAL 0.9 MG/DL (0.3-1.2); BLOOD UREA NITROGEN 28 MG/DL (9-23); CALCIUM LEVEL 8.6 MG/DL (8.3-10.6); CARBON DIOXIDE LEVEL 29 MMOL/L (20-31); CHLORIDE LEVEL 108 MMOL/L (98-107); CK-MB VALUE MASS < 1.0 NG/ML (<3.6); CREATININE FOR GFR 1.11 MG/DL (0.55-1.30); GLUCOSE, FASTING 97 MG/DL (74-106); MB/CK RELATIVE INDEX 1.09 (< OR =4); POTASSIUM SERUM 3.4 MMOL/L (3.5-5.1); SODIUM LEVEL 144 MMOL/L (136-145); TOTAL PROTEIN 6.2 G/DL (5.7-8.2)
== END ==
LOC: M WUC 09:35
PROVIDERS: ATTEND Physician Assistant
DX: R05.9 Cough, unspecified (principal); R53.83 Other fatigue; Z20.828 Contact with and (suspected) exposure to other viral communicable diseases

== ENCOUNTER → 2023-01-13 | Outpatient (CLI) | payer MEDICARE, OTHER | LOC: M PLAIMG 11:10 | PROVIDERS: ATTEND Physician Assistant Medical | DX: R91.8 Other nonspecific abnormal finding of lung field (principal); I70.90 Unspecified atherosclerosis; K44.9 Diaphragmatic hernia without obstruction or gangrene ==

== ENCOUNTER → 2023-02-03 | Outpatient (REF) | payer MEDICARE, OTHER ==
[2023-02-03 13:11] LABS: BASO % 0.5 % (0.0-1.0); EOS # 0.1 10^3/uL (0.0-0.5); EOS % 1.6 % (0.0-3.0); HEMATOCRIT 40.4 % (36.0-47.0); HEMOGLOBIN 12.5 g/dl (12.0-15.5); LYMPH # 1.6 10^3/uL (1.5-5.0); LYMPH % 25.8 % (24.0-44.0); MEAN CORPUSCULAR HEMOGLOBIN 30.7 pg (27.0-33.0); MEAN CORPUSCULAR HGB CONC 30.9 g/dl (32.0-36.5); MEAN CORPUSCULAR VOLUME 99.3 fl (80.0-96.0); MONO # 0.5 10^3/uL (0.0-0.8); MONO % 7.8 % (2.0-8.0); NEUTROPHILS # 4.1 10^3/uL (1.5-8.5); PLATELET COUNT, AUTOMATED 296 10^3/uL (150-450); RED BLOOD COUNT 4.07 10^6/uL (4.00-5.40); WHITE BLOOD COUNT 6.3 10^3/uL (4.0-10.0)
[2023-02-03 13:15] LABS: PERCENT SATURATION 88.2 % (13.2-45.0)
[2023-02-03 13:37] LABS: CREATININE, URINE 46.2 MG/DL; MAU/CREAT RATIO 10.8 MCG/MG (0.0-30.0)
[2023-02-03 14:37] LABS: HEMOGLOBIN A1c 5.4 % (4.0-6.0)
[2023-02-03 14:49] LABS: ALBUMIN 3.7 G/DL (3.2-5.2); BILIRUBIN,TOTAL 0.4 MG/DL (0.3-1.2); CALCIUM LEVEL 9.1 MG/DL (8.3-10.6); CHOLESTEROL RISK RATIO 3.35 (<5); CREATININE FOR GFR 0.99 MG/DL (0.55-1.30); HDL CHOLESTEROL 50.1 MG/DL (>40); NON-HDL-C 117.9 MG/DL; POTASSIUM SERUM 4.8 MMOL/L (3.5-5.1)
[2023-02-03 16:22] LABS: THYROID STIMULATING HORMONE 0.163 uIU/ML (0.55-4.78); TOTAL 25(OH) VITAMIN D 41.6 NG/ML (20.0-100.0)
[2023-02-03 18:43] LABS: LDL CHOLESTEROL 100.9 MG/DL (<100); TOTAL PROTEIN 7.2 G/DL (5.7-8.2)
[2023-02-03 18:48] LABS: FERRITIN 18.7 NG/ML (7.3-270.7)
== END ==
LOC: M SFHCADAM 10:19
PROVIDERS: ATTEND Physician Assistant Medical
DX: K21.9 Gastro-esophageal reflux disease without esophagitis (principal); E78.2 Mixed hyperlipidemia; E55.9 Vitamin D deficiency, unspecified; D50.9 Iron deficiency anemia, unspecified; Z79.899 Other long term (current) drug therapy

== ENCOUNTER → 2023-08-06 | Outpatient (CLI) | payer MEDICARE, OTHER | LOC: M WHC 09:07 | PROVIDERS: ATTEND Physician Assistant Medical | DX: Z12.31 Encounter for screening mammogram for malignant neoplasm of breast (principal) ==

== ENCOUNTER → 2024-01-01 | Outpatient (REF) | payer MEDICARE, OTHER ==
[2024-01-01 17:31] LABS: BASO # 0.1 10^3/uL (0.0-0.2); BASO % 0.8 % (0.0-1.0); EOS # 0.1 10^3/uL (0.0-0.5); EOS % 1.6 % (0.0-3.0); HEMATOCRIT 29.4 % (36.0-47.0); HEMOGLOBIN 8.7 g/dl (12.0-15.5); LYMPH # 1.4 10^3/uL (1.5-5.0); LYMPH % 21.6 % (24.0-44.0); MEAN CORPUSCULAR HEMOGLOBIN 26.8 pg (27.0-33.0); MEAN CORPUSCULAR HGB CONC 29.6 g/dl (32.0-36.5); MEAN CORPUSCULAR VOLUME 90.5 fl (80.0-96.0); MONO # 0.5 10^3/uL (0.0-0.8); MONO % 8.1 % (2.0-8.0); NEUTROPHILS # 4.4 10^3/uL (1.5-8.5); NEUTROPHILS % 67.6 % (36.0-66.0); PLATELET COUNT, AUTOMATED 380 10^3/uL (150-450); RED BLOOD COUNT 3.25 10^6/uL (4.00-5.40); WHITE BLOOD COUNT 6.4 10^3/uL (4.0-10.0)
[2024-01-01 18:01] LABS: C REACTIVE PROTEIN QUANTITATIV < 0.40 MG/DL (<1.0)
[2024-01-01 18:03] LABS: IRON (FE) 14 UG/DL (50-170); PERCENT SATURATION 4.3 % (13.2-45.0); TOTAL IRON BINDING CAPACITY 322 UG/DL (250-425)
[2024-01-01 18:04] LABS: ALBUMIN 3.6 G/DL (3.2-5.2); ALKALINE PHOSPHATASE 98 U/L (46-116); ALT/SGPT 32 U/L (7.0-40); AST/SGOT 20 U/L (<34); BILIRUBIN,TOTAL 0.5 MG/DL (0.3-1.2); BLOOD UREA NITROGEN 15 MG/DL (9-23); CALCIUM LEVEL 8.5 MG/DL (8.3-10.6); CARBON DIOXIDE LEVEL 29 MMOL/L (20-31); CHLORIDE LEVEL 105 MMOL/L (98-107); CHOLESTEROL LEVEL 133 MG/DL (<200); CHOLESTEROL RISK RATIO 3.17 (<5); CREATININE FOR GFR 0.86 MG/DL (0.55-1.30); FERRITIN 13.6 NG/ML (7.3-270.7); GLOMERULAR FILTRATION RATE > 60.0 (>32); GLUCOSE, FASTING 87 MG/DL (74-106); HDL CHOLESTEROL 41.9 MG/DL (>40); LDL CHOLESTEROL 72.1 MG/DL (<100); MAGNESIUM LEVEL 2.2 MG/DL (1.8-2.4); NON-HDL-C 91.1 MG/DL; POTASSIUM SERUM 4.3 MMOL/L (3.5-5.1); SODIUM LEVEL 139 MMOL/L (136-145); THYROID STIMULATING HORMONE 0.629 uIU/ML (0.55-4.78); TOTAL PROTEIN 6.9 G/DL (5.7-8.2); TRIGLYCERIDES LEVEL 95 MG/DL (<150)
[2024-01-01 18:05] LABS: FOLATE > 24.0 NG/ML (>5.4); VITAMIN B12 LEVEL 537 PG/ML (211-911)
[2024-01-01 18:20] LABS: ERYTHROCYTE SEDIMENTATION RATE 36 mm/hr (0-30)
== END ==
LOC: M SFHCADAM 13:38
PROVIDERS: ATTEND Physician Assistant Medical
DX: R19.5 Other fecal abnormalities (principal); R19.4 Change in bowel habit; E55.9 Vitamin D deficiency, unspecified; D50.9 Iron deficiency anemia, unspecified; I50.22 Chronic systolic (congestive) heart failure

== ENCOUNTER → 2024-01-02 | Outpatient (REF) | payer MEDICARE, OTHER ==
[~2024-01-02] MED LIST changes: +ASPI81CH8 PO; +ENTR1TAB7 PO; +FARX1TAB5 PO; +SERT25TA21 PO; +XARE20TA PO
== END ==
LOC: M SFHCADAM 11:33
PROVIDERS: ATTEND Physician Assistant Medical
DX: R19.5 Other fecal abnormalities (principal); R19.7 Diarrhea, unspecified

== ENCOUNTER 2024-01-10 10:01 | Inpatient (IN) | payer MEDICARE, OTHER ==
[~2024-01-10] VITALS: Ht 160 cm; Wt 68.1 kg
[~2024-01-10 10:01] MED LIST changes: -ASPI81CH8 PO; -ENTR1TAB7 PO; -FARX1TAB5 PO; -SERT25TA21 PO; -XARE20TA PO
[2024-01-10 10:53] LABS: BASO % 0.6 % (0.0-1.0); EOS # 0.1 10^3/uL (0.0-0.5); EOS % 1.5 % (0.0-3.0); HEMATOCRIT 29.4 % (36.0-47.0); HEMOGLOBIN 8.7 g/dl (12.0-15.5); LYMPH # 1.2 10^3/uL (1.5-5.0); LYMPH % 17.8 % (24.0-44.0); MEAN CORPUSCULAR HEMOGLOBIN 26.6 pg (27.0-33.0); MEAN CORPUSCULAR HGB CONC 29.6 g/dl (32.0-36.5); MEAN CORPUSCULAR VOLUME 89.9 fl (80.0-96.0); MONO # 0.4 10^3/uL (0.0-0.8); MONO % 6.7 % (2.0-8.0); NEUTROPHILS # 4.7 10^3/uL (1.5-8.5); NEUTROPHILS % 73.2 % (36.0-66.0); PLATELET COUNT, AUTOMATED 372 10^3/uL (150-450); RED BLOOD COUNT 3.27 10^6/uL (4.00-5.40); WHITE BLOOD COUNT 6.5 10^3/uL (4.0-10.0)
[2024-01-10 11:08] LABS: INR 1.24; PARTIAL THROMBOPLASTIN TIME 28.5 SECONDS (24.8-34.2); PROTHROMBIN TIME 15.2 SECONDS (12.5-14.5)
[2024-01-10 11:16] LABS: LIPASE 42 U/L (12-53)
[2024-01-10 11:17] LABS: CK-MB VALUE MASS < 1.0 NG/ML (<3.6)
[2024-01-10 11:19] LABS: ALBUMIN 3.4 G/DL (3.2-5.2); ALKALINE PHOSPHATASE 86 U/L (46-116); ALT/SGPT 20 U/L (7.0-40); AST/SGOT 20 U/L (<34); BILIRUBIN,DIRECT 0.1 MG/DL (<0.4); BILIRUBIN,TOTAL 0.4 MG/DL (0.3-1.2); BLOOD UREA NITROGEN 19 MG/DL (9-23); CARBON DIOXIDE LEVEL 27 MMOL/L (20-31); CHLORIDE LEVEL 108 MMOL/L (98-107); GLOMERULAR FILTRATION RATE > 60.0 (>32); GLUCOSE, FASTING 96 MG/DL (74-106); MAGNESIUM LEVEL 2.1 MG/DL (1.8-2.4); POTASSIUM SERUM 4.4 MMOL/L (3.5-5.1); SODIUM LEVEL 140 MMOL/L (136-145); TOTAL PROTEIN 6.4 G/DL (5.7-8.2)
[2024-01-10 11:20] LABS: CPK CREATINE PHOSPHOKINASE 76 U/L (34-145); MB/CK RELATIVE INDEX 1.31 (< OR =4)
[2024-01-10] MEDS ORDERED: SERT25TA21 PO (12:13)
[2024-01-10 12:25] LABS: CK-MB VALUE MASS < 1.0 NG/ML (<3.6)
[2024-01-10 12:27] LABS: CPK CREATINE PHOSPHOKINASE 74 U/L (34-145); MB/CK RELATIVE INDEX 1.35 (< OR =4)
[2024-01-10] MEDS ORDERED: FARX1TAB5 PO (13:30)
[2024-01-10] MEDS ORDERED: ENTR1TAB7 PO (13:30)
[2024-01-10] MEDS ORDERED: HOME MED LIST COMPLETE! XX SCH (13:35)
[2024-01-10] MEDS: NS 1,000 ML IV SCH (16:01)
[2024-01-10] MEDS ORDERED: ACETAMINOPHEN TAB 650MG DOSE (2X325MG) PO PRN (16:20)
[2024-01-10] MEDS ORDERED: MOM 30ML SUSPENSION UDC PO PRN (16:20)
[2024-01-10] MEDS ORDERED: PINK BISMUTH SUSP 524MG/30ML ORAL SYRINGE PO PRN (17:05)
[2024-01-10 17:07] LABS: CHOLESTEROL LEVEL 134 MG/DL (<200); CHOLESTEROL RISK RATIO 3.41 (<5); HDL CHOLESTEROL 39.2 MG/DL (>40); LDL CHOLESTEROL 80.6 MG/DL (<100); NON-HDL-C 94.8 MG/DL; TRIGLYCERIDES LEVEL 71 MG/DL (<150)
[2024-01-10 17:55] VITALS: BP 119/58; TEMP 98.3; O2SAT 98
[2024-01-10 18:32] LABS: INR 1.19; PARTIAL THROMBOPLASTIN TIME 29.1 SECONDS (24.8-34.2); PROTHROMBIN TIME 14.8 SECONDS (12.5-14.5)
[2024-01-10] MEDS: SERTRALINE HCL 25 MG TABLET PO SCH (18:37)
[2024-01-10] MEDS: PANTOPRAZOLE 40MG TAB (PROTONIX) PO SCH (18:37)
[2024-01-10] MEDS: ASPIRIN 81MG CHEW TABLET PO SCH (18:37)
[2024-01-10] MEDS: FERROUS SULFATE 325MG TAB PO SCH (18:37)
[2024-01-10 19:37] VITALS: BP 102/49; TEMP 97.8; O2SAT 95
[2024-01-10] MEDS: ATORVASTATIN 20 MG TAB PO SCH (20:05)
[2024-01-10] MEDS: APIXABAN 5 MG TAB (ELIQUIS) PO SCH (20:05)
[2024-01-10] MEDS: DAPAGLIFLOZIN PROPANEDIOL 10MG TABLET (FARXIGA) PO SCH (20:05)
[2024-01-11 03:44] VITALS: BP 136/62; TEMP 98.6; O2SAT 95
[2024-01-11 05:56] LABS: HEMATOCRIT 25.7 % (36.0-47.0); HEMOGLOBIN 7.8 g/dl (12.0-15.5); MEAN CORPUSCULAR HEMOGLOBIN 26.8 pg (27.0-33.0); MEAN CORPUSCULAR HGB CONC 30.4 g/dl (32.0-36.5); MEAN CORPUSCULAR VOLUME 88.3 fl (80.0-96.0); PLATELET COUNT, AUTOMATED 341 10^3/uL (150-450); RED BLOOD COUNT 2.91 10^6/uL (4.00-5.40); WHITE BLOOD COUNT 5.7 10^3/uL (4.0-10.0)
[2024-01-11 06:16] LABS: BLOOD UREA NITROGEN 17 MG/DL (9-23); CALCIUM LEVEL 7.8 MG/DL (8.3-10.6); CARBON DIOXIDE LEVEL 27 MMOL/L (20-31); CHLORIDE LEVEL 109 MMOL/L (98-107); CREATININE FOR GFR 0.77 MG/DL (0.55-1.30); GLOMERULAR FILTRATION RATE > 60.0 (>32); GLUCOSE, FASTING 97 MG/DL (74-106); MAGNESIUM LEVEL 2.1 MG/DL (1.8-2.4); POTASSIUM SERUM 4.1 MMOL/L (3.5-5.1); SODIUM LEVEL 140 MMOL/L (136-145)
[2024-01-11 07:50] VITALS: BP 154/68; TEMP 98.8; O2SAT 96
[2024-01-11] MEDS: FUROSEMIDE 40 MG TAB PO SCH (09:00)
[2024-01-11 09:22] LABS: IRON (FE) 58 UG/DL (50-170); PERCENT SATURATION 20.4 % (13.2-45.0); TOTAL IRON BINDING CAPACITY 285 UG/DL (250-425)
[2024-01-11 09:24] LABS: FERRITIN 12.2 NG/ML (7.3-270.7); VITAMIN B12 LEVEL 363 PG/ML (211-911)
[2024-01-11 09:25] LABS: FOLATE 16.52 NG/ML (>5.4)
[2024-01-11 12:10] VITALS: BP 123/58; TEMP 98.4; O2SAT 97
[2024-01-11] MEDS ORDERED: XARE20TA PO (14:52)
[2024-01-11] MEDS ORDERED: ASPI81CH8 PO (14:52)
[2024-01-11 15:19] VITALS: BP 127/57; TEMP 98.4; O2SAT 97
[2024-01-11] MEDS: ENTRESTO 49-51MG TABLET (SACUBITRIL/VALSARTAN) PO SCH (15:28)
[2024-01-11] MEDS ORDERED: RIVAROXABAN 20MG TAB (XARELTO) PO SCH (18:00)
[2024-01-11] MEDS: RIVAROXABAN 20MG TAB (XARELTO) PO SCH (18:16)
[2024-01-11 20:02] VITALS: BP 122/58; TEMP 98.3; O2SAT 91
[2024-01-11] MEDS ORDERED: PILL CUTTER 1 EACH XX ONE (20:16)
[2024-01-12 04:32] VITALS: BP 120/56; TEMP 97.8; O2SAT 94
[2024-01-12 08:20] VITALS: BP 119/58; TEMP 97.4; O2SAT 97
== END 2024-01-12 11:07 | disposition home or self-care (01) | DRG 65 ==
LOC: M ED 10:01 → M ED INP 10:02 → M PCU 17:55 → OBSVTOIN 18:17
PROVIDERS: ADMIT Student in an Organized Health Care Education/Training Program; ATTEND Student in an Organized Health Care Education/Training Program
DX: I63.511 Cerebral infarction due to unspecified occlusion or stenosis of right middle cerebral artery (principal); G45.9 Transient cerebral ischemic attack, unspecified; I50.22 Chronic systolic (congestive) heart failure; I69.320 Aphasia following cerebral infarction; I11.0 Hypertensive heart disease with heart failure; I27.20 Pulmonary hypertension, unspecified; Z95.2 Presence of prosthetic heart valve; D50.9 Iron deficiency anemia, unspecified; I25.10 Atherosclerotic heart disease of native coronary artery without angina pectoris; I48.0 Paroxysmal atrial fibrillation; E78.5 Hyperlipidemia, unspecified; R19.7 Diarrhea, unspecified; Z95.1 Presence of aortocoronary bypass graft; K21.9 Gastro-esophageal reflux disease without esophagitis; Z79.82 Long term (current) use of aspirin; Z79.899 Other long term (current) drug therapy; Z98.41 Cataract extraction status, right eye; Z98.42 Cataract extraction status, left eye

== ENCOUNTER → 2024-02-03 | Outpatient (REF) | payer MEDICARE, OTHER ==
[~2024-02-03] MED LIST changes: +ASPI81CH8 PO; +ENTR1TAB7 PO; +FARX1TAB5 PO; +SERT25TA21 PO; +XARE20TA PO
[2024-02-03 13:56] LABS: HEMATOCRIT 32.8 % (36.0-47.0); HEMOGLOBIN 10.1 g/dl (12.0-15.5); MEAN CORPUSCULAR HEMOGLOBIN 30.1 pg (27.0-33.0); MEAN CORPUSCULAR HGB CONC 30.8 g/dl (32.0-36.5); MEAN CORPUSCULAR VOLUME 97.6 fl (80.0-96.0); PLATELET COUNT, AUTOMATED 322 10^3/uL (150-450); RED BLOOD COUNT 3.36 10^6/uL (4.00-5.40); WHITE BLOOD COUNT 5.2 10^3/uL (4.0-10.0)
== END ==
LOC: M LABWUC 11:58
PROVIDERS: ATTEND Physician Assistant Medical
DX: D50.9 Iron deficiency anemia, unspecified (principal)

== ENCOUNTER → 2024-02-16 | Outpatient (REF) | payer MEDICARE, OTHER ==
[2024-02-16 18:47] LABS: HEMOGLOBIN 10.1 g/dl (12.0-15.5); MEAN CORPUSCULAR HEMOGLOBIN 30.9 pg (27.0-33.0); MEAN CORPUSCULAR HGB CONC 30.6 g/dl (32.0-36.5); MEAN CORPUSCULAR VOLUME 100.9 fl (80.0-96.0); PLATELET COUNT, AUTOMATED 332 10^3/uL (150-450); RED BLOOD COUNT 3.27 10^6/uL (4.00-5.40); WHITE BLOOD COUNT 7.6 10^3/uL (4.0-10.0)
== END ==
LOC: M LABWUC 18:10
PROVIDERS: ATTEND Physician Assistant Medical
DX: D50.9 Iron deficiency anemia, unspecified (principal)

== ENCOUNTER → 2024-03-08 | Outpatient (REF) | payer MEDICARE, OTHER ==
[2024-03-08 17:25] LABS: HEMOGLOBIN 12.6 g/dl (12.0-15.5); MEAN CORPUSCULAR HEMOGLOBIN 31.7 pg (27.0-33.0); MEAN CORPUSCULAR HGB CONC 32.3 g/dl (32.0-36.5); PLATELET COUNT, AUTOMATED 234 10^3/uL (150-450); RED BLOOD COUNT 3.98 10^6/uL (4.00-5.40); WHITE BLOOD COUNT 6.9 10^3/uL (4.0-10.0)
== END ==
LOC: M LABWUC 16:21
PROVIDERS: ATTEND Physician Assistant Medical
DX: D50.9 Iron deficiency anemia, unspecified (principal)

== ENCOUNTER → 2024-04-28 | Outpatient (CLI) | payer MEDICARE, OTHER ==
[2024-04-28 17:33] LABS: HEMATOCRIT 41.7 % (36.0-47.0); HEMOGLOBIN 13.3 g/dl (12.0-15.5); MEAN CORPUSCULAR HEMOGLOBIN 30.9 pg (27.0-33.0); MEAN CORPUSCULAR HGB CONC 31.9 g/dl (32.0-36.5); MEAN CORPUSCULAR VOLUME 96.8 fl (80.0-96.0); PLATELET COUNT, AUTOMATED 219 10^3/uL (150-450); RED BLOOD COUNT 4.31 10^6/uL (4.00-5.40); WHITE BLOOD COUNT 5.6 10^3/uL (4.0-10.0)
[2024-04-28 17:54] LABS: PERCENT SATURATION 26.9 % (13.2-45.0)
[2024-04-28 17:57] LABS: FERRITIN 23.4 NG/ML (7.3-270.7)
== END ==
LOC: M WUC 09:58
PROVIDERS: ATTEND Physician Assistant Medical
DX: D50.9 Iron deficiency anemia, unspecified (principal)

== ENCOUNTER → 2024-08-13 | Outpatient (CLI) | payer MEDICARE, OTHER ==
[2024-08-13 17:39] LABS: BASO % 0.6 % (0.0-1.0); EOS # 0.1 10^3/uL (0.0-0.5); EOS % 1.8 % (0.0-3.0); HEMATOCRIT 38.4 % (36.0-47.0); HEMOGLOBIN 12.8 g/dl (12.0-15.5); LYMPH # 1.6 10^3/uL (1.5-5.0); LYMPH % 25.2 % (24.0-44.0); MEAN CORPUSCULAR HEMOGLOBIN 33.5 pg (27.0-33.0); MEAN CORPUSCULAR HGB CONC 33.3 g/dl (32.0-36.5); MEAN CORPUSCULAR VOLUME 100.5 fl (80.0-96.0); MONO # 0.5 10^3/uL (0.0-0.8); MONO % 7.3 % (2.0-8.0); NEUTROPHILS # 4.1 10^3/uL (1.5-8.5); NEUTROPHILS % 64.8 % (36.0-66.0); PLATELET COUNT, AUTOMATED 240 10^3/uL (150-450); RED BLOOD COUNT 3.82 10^6/uL (4.00-5.40); WHITE BLOOD COUNT 6.3 10^3/uL (4.0-10.0)
[2024-08-13 17:48] LABS: ALBUMIN 3.7 G/DL (3.2-5.2); ALKALINE PHOSPHATASE 84 U/L (46-116); ALT/SGPT 20 U/L (7.0-40); AST/SGOT 17 U/L (<34); BILIRUBIN,TOTAL 0.5 MG/DL (0.3-1.2); BLOOD UREA NITROGEN 20 MG/DL (9-23); CALCIUM LEVEL 9.3 MG/DL (8.3-10.6); CARBON DIOXIDE LEVEL 30 MMOL/L (20-31); CHLORIDE LEVEL 105 MMOL/L (98-107); CHOLESTEROL LEVEL 155 MG/DL (<200); CHOLESTEROL RISK RATIO 4.08 (<5); CREATININE FOR GFR 0.88 MG/DL (0.55-1.30); GLOMERULAR FILTRATION RATE > 60.0 (>32); GLUCOSE, FASTING 85 MG/DL (74-106); HDL CHOLESTEROL 37.9 MG/DL (>40); LDL CHOLESTEROL 87.9 MG/DL (<100); NON-HDL-C 117.1 MG/DL; POTASSIUM SERUM 3.8 MMOL/L (3.5-5.1); SODIUM LEVEL 140 MMOL/L (136-145); TRIGLYCERIDES LEVEL 146 MG/DL (<150)
[2024-08-13 17:50] LABS: ALBUMIN 3.9 G/DL (3.2-5.2); ALKALINE PHOSPHATASE 84 U/L (46-116); ALT/SGPT 20 U/L (7.0-40); AST/SGOT 16 U/L (<34); BILIRUBIN,TOTAL 0.5 MG/DL (0.3-1.2); BLOOD UREA NITROGEN 21 MG/DL (9-23); CALCIUM LEVEL 9.1 MG/DL (8.3-10.6); CARBON DIOXIDE LEVEL 29 MMOL/L (20-31); CHLORIDE LEVEL 106 MMOL/L (98-107); CHOLESTEROL LEVEL 153 MG/DL (<200); CHOLESTEROL RISK RATIO 3.56 (<5); CREATININE FOR GFR 0.86 MG/DL (0.55-1.30); GLOMERULAR FILTRATION RATE > 60.0 (>32); GLUCOSE, FASTING 88 MG/DL (74-106); HDL CHOLESTEROL 42.9 MG/DL (>40); LDL CHOLESTEROL 79.9 MG/DL (<100); NON-HDL-C 110.1 MG/DL; POTASSIUM SERUM 3.9 MMOL/L (3.5-5.1); SODIUM LEVEL 138 MMOL/L (136-145); TOTAL PROTEIN 7.1 G/DL (5.7-8.2); TRIGLYCERIDES LEVEL 151 MG/DL (<150)
[2024-08-13 17:51] LABS: THYROID STIMULATING HORMONE 0.724 uIU/ML (0.55-4.78); TOTAL 25(OH) VITAMIN D 36.3 NG/ML (20.0-100.0)
== END ==
LOC: M WUC 11:04
PROVIDERS: ATTEND Nurse Practitioner Acute Care
DX: E78.5 Hyperlipidemia, unspecified (principal)

== ENCOUNTER → 2024-11-23 | Outpatient (CLI) | payer MEDICARE, OTHER ==
[2024-11-23 12:18] LABS: BASO # 0.1 10^3/uL (0.0-0.2); BASO % 0.7 % (0.0-1.0); EOS # 0.2 10^3/uL (0.0-0.5); HEMATOCRIT 38.7 % (36.0-47.0); HEMOGLOBIN 12.9 g/dl (12.0-15.5); LYMPH # 1.7 10^3/uL (1.5-5.0); LYMPH % 24.6 % (24.0-44.0); MEAN CORPUSCULAR HEMOGLOBIN 31.9 pg (27.0-33.0); MEAN CORPUSCULAR HGB CONC 33.3 g/dl (32.0-36.5); MEAN CORPUSCULAR VOLUME 95.8 fl (80.0-96.0); MONO # 0.4 10^3/uL (0.0-0.8); MONO % 6.2 % (2.0-8.0); NEUTROPHILS # 4.5 10^3/uL (1.5-8.5); NEUTROPHILS % 65.2 % (36.0-66.0); PLATELET COUNT, AUTOMATED 257 10^3/uL (150-450); RED BLOOD COUNT 4.04 10^6/uL (4.00-5.40); WHITE BLOOD COUNT 6.9 10^3/uL (4.0-10.0)
[2024-11-23 12:43] LABS: HEMOGLOBIN A1c 5.4 % (4.0-6.0)
[2024-11-23 12:58] LABS: ALBUMIN 3.6 G/DL (3.2-5.2); ALKALINE PHOSPHATASE 73 U/L (35-104); ALT/SGPT 23 U/L (7.0-40); AST/SGOT 24 U/L (<34); BILIRUBIN,TOTAL 0.7 MG/DL (0.3-1.2); BLOOD UREA NITROGEN 16 MG/DL (9-23); CARBON DIOXIDE LEVEL 30 MMOL/L (20-31); CHLORIDE LEVEL 110 MMOL/L (98-107); CHOLESTEROL LEVEL 157 MG/DL (<200); CHOLESTEROL RISK RATIO 4.38 (<5); CREATININE FOR GFR 0.86 MG/DL (0.55-1.30); FREE T4 1.35 NG/DL (0.89-1.76); GLOMERULAR FILTRATION RATE > 60.0 (>32); GLUCOSE, FASTING 94 MG/DL (74-106); HDL CHOLESTEROL 35.8 MG/DL (>40); IRON (FE) 59 UG/DL (50-170); LDL CHOLESTEROL 96.8 MG/DL (<100); NON-HDL-C 121.2 MG/DL; PERCENT SATURATION 22.6 % (13.2-45.0); POTASSIUM SERUM 4.4 MMOL/L (3.5-5.1); SODIUM LEVEL 143 MMOL/L (136-145); TOTAL IRON BINDING CAPACITY 261 UG/DL (250-425); TRIGLYCERIDES LEVEL 122 MG/DL (<150)
[2024-11-23 12:59] LABS: FERRITIN 36.4 NG/ML (7.3-270.7)
[2024-11-23 13:00] LABS: TOTAL 25(OH) VITAMIN D 24.6 NG/ML (20.0-100.0)
== END ==
LOC: M WUC 09:29
PROVIDERS: ATTEND Physician Assistant Medical
DX: I50.22 Chronic systolic (congestive) heart failure (principal); D50.9 Iron deficiency anemia, unspecified; E78.2 Mixed hyperlipidemia

== ENCOUNTER → 2025-03-11 | Outpatient (CLI) | payer MEDICARE, OTHER ==
[2025-03-11 14:58] LABS: BASO # 0.1 10^3/uL (0.0-0.2); BASO % 0.8 % (0.0-1.0); EOS # 0.1 10^3/uL (0.0-0.5); EOS % 1.3 % (0.0-3.0); HEMATOCRIT 38.2 % (36.0-47.0); HEMOGLOBIN 12.1 g/dl (12.0-15.5); LYMPH # 1.5 10^3/uL (1.5-5.0); MEAN CORPUSCULAR HEMOGLOBIN 31.8 pg (27.0-33.0); MEAN CORPUSCULAR HGB CONC 31.7 g/dl (32.0-36.5); MEAN CORPUSCULAR VOLUME 100.5 fl (80.0-96.0); MONO # 0.5 10^3/uL (0.0-0.8); MONO % 7.3 % (2.0-8.0); NEUTROPHILS % 65.4 % (36.0-66.0); PLATELET COUNT, AUTOMATED 285 10^3/uL (150-450); WHITE BLOOD COUNT 6.2 10^3/uL (4.0-10.0)
[2025-03-11 15:30] LABS: THYROID STIMULATING HORMONE 1.229 uIU/ML (0.55-4.78)
[2025-03-11 15:31] LABS: ALBUMIN 4.1 G/DL (3.2-5.2); ALKALINE PHOSPHATASE 75 U/L (35-104); ALT/SGPT 27 U/L (7.0-40); AST/SGOT 20 U/L (<34); BILIRUBIN,TOTAL 0.8 MG/DL (0.3-1.2); BLOOD UREA NITROGEN 20 MG/DL (9-23); CALCIUM LEVEL 9.3 MG/DL (8.3-10.6); CARBON DIOXIDE LEVEL 29 MMOL/L (20-31); CHLORIDE LEVEL 104 MMOL/L (98-107); CHOLESTEROL LEVEL 146 MG/DL (<200); CHOLESTEROL RISK RATIO 3.41 (<5); FERRITIN 14.1 NG/ML (7.3-270.7); FOLATE > 24.0 NG/ML (>5.4); GLOMERULAR FILTRATION RATE 55.2 (>32); GLUCOSE, FASTING 98 MG/DL (74-106); HDL CHOLESTEROL 42.8 MG/DL (>40); IRON (FE) 108 UG/DL (50-170); LDL CHOLESTEROL 83.6 MG/DL (<100); NON-HDL-C 103.2 MG/DL; PERCENT SATURATION 35.2 % (13.2-45.0); POTASSIUM SERUM 4.3 MMOL/L (3.5-5.1); SODIUM LEVEL 143 MMOL/L (136-145); TOTAL 25(OH) VITAMIN D 41.3 NG/ML (20.0-100.0); TOTAL IRON BINDING CAPACITY 307 UG/DL (250-425); TOTAL PROTEIN 7.3 G/DL (5.7-8.2); TRIGLYCERIDES LEVEL 98 MG/DL (<150)
[2025-03-11 15:32] LABS: VITAMIN B12 LEVEL 548 PG/ML (211-911)
[2025-03-11 15:35] LABS: HEMOGLOBIN A1c 5.3 % (4.0-6.0)
== END ==
LOC: M WUC 10:49
PROVIDERS: ATTEND Physician Assistant Medical
DX: D50.9 Iron deficiency anemia, unspecified (principal); F32.1 Major depressive disorder, single episode, moderate; I50.22 Chronic systolic (congestive) heart failure; I25.10 Atherosclerotic heart disease of native coronary artery without angina pectoris; E55.9 Vitamin D deficiency, unspecified; Z79.899 Other long term (current) drug therapy

== ENCOUNTER → 2025-03-16 | Outpatient (REF) | payer MEDICARE, OTHER ==
[2025-03-16 14:06] LABS: APPEARANCE, URINE HAZY (CLEAR); BACTERIA, URINE AUTO 1+ (NEGATIVE); BILIRUBIN, URINE AUTO NEGATIVE (NEGATIVE); BLOOD, URINE BLOOD 1+ (NEGATIVE); COLOR, URINE YELLOW (YELLOW); GLUCOSE, URINE (UA) AUTO 3+ mg/dL (NEGATIVE); KETONE, URINE AUTO NEGATIVE (NEGATIVE); LEUKOCYTE ESTERASE, URINE AUTO 1+ (NEGATIVE); NITRITE, URINE AUTO NEGATIVE (NEGATIVE); PROTEIN, URINE AUTO 1+ mg/dL (NEGATIVE); RBC, URINE AUTO 2 /HPF (0-3); SPECIFIC GRAVITY URINE AUTO 1.016 (1.002-1.035); SQUAMOUS EPITHELIAL CELL UR AU 1 /HPF (0-6); WBC, URINE AUTO 24 /HPF (0-3)
== END ==
LOC: M SFHCADAM 13:28
PROVIDERS: ATTEND Physician Assistant Medical
DX: R35.0 Frequency of micturition (principal)

== ENCOUNTER 2025-06-15 12:39 | Emergency (ER) | payer MEDICARE, OTHER ==
[~2025-06-15] VITALS: Ht 160 cm; Wt 65.3 kg
[2025-06-15 13:08] LABS: BASO # 0.0 10^3/uL (0.0-0.2); BASO % 0.7 % (0.0-1.0); EOS # 0.1 10^3/uL (0.0-0.5); EOS % 1.3 % (0.0-3.0); LYMPH # 1.3 10^3/uL (1.5-5.0); LYMPH % 21.4 % (24.0-44.0); MONO # 0.5 10^3/uL (0.0-0.8); MONO % 8.8 % (2.0-8.0); NEUTROPHILS # 4.2 10^3/uL (1.5-8.5); NEUTROPHILS % 67.6 % (36.0-66.0); PLATELET COUNT, AUTOMATED 266 10^3/uL (150-450)
[2025-06-15 13:21] LABS: INR 1.24
[2025-06-15 15:24] LABS: CALCIUM LEVEL 8.6 MG/DL (8.3-10.6); CARBON DIOXIDE LEVEL 29 MMOL/L (20-31); CHLORIDE LEVEL 104 MMOL/L (98-107); CK-MB VALUE MASS < 1.0 NG/ML (<3.6); CPK CREATINE PHOSPHOKINASE 55 U/L (34-145); CREATININE FOR GFR 0.97 MG/DL (0.55-1.30); GLOMERULAR FILTRATION RATE 57.3 (>32); POTASSIUM SERUM 4.4 MMOL/L (3.5-5.1); SODIUM LEVEL 142 MMOL/L (136-145)
[2025-06-15 15:44] LABS: CK-MB VALUE MASS 1.0 NG/ML (<3.6)
[2025-06-15 15:47] LABS: CPK CREATINE PHOSPHOKINASE 50.0 U/L (34-145); MB/CK RELATIVE INDEX 2.0 (< OR =4)
[2025-06-15] MEDS ORDERED: HOME MED LIST COMPLETE! XX SCH (16:15)
[2025-06-15] MEDS: ETOMIDATE 20 MG/10 ML VIAL IV ONE (16:30)
[2025-06-15] MEDS: NS (Normal Saline) 0.9% 1,000 ML IV SCH (16:30)
[2025-06-15 17:17] VITALS: BP 124/61
[2025-06-15] MEDS: METOPROLOL SUCC. 25 MG *XL* TAB PO ONE (17:17)
[2025-06-15] MEDS ORDERED: METO1TAB32 PO (17:28)
[2025-06-15 17:45] VITALS: BP 120/60; TEMP 97.6; O2SAT 97
== END 2025-06-15 18:24 | disposition home or self-care (01) ==
LOC: M ED 12:39 → EDBD 12:39 → M ED 18:24
DX: I48.91 Unspecified atrial fibrillation (principal); I44.7 Left bundle-branch block, unspecified; I44.0 Atrioventricular block, first degree; I50.22 Chronic systolic (congestive) heart failure; K21.9 Gastro-esophageal reflux disease without esophagitis; F10.10 Alcohol abuse, uncomplicated; Z79.01 Long term (current) use of anticoagulants; Z79.899 Other long term (current) drug therapy

== ENCOUNTER → 2025-06-15 | Outpatient (REF) | payer MEDICARE, OTHER ==
[~2025-06-15] MED LIST changes: -AMIO200T49 PO; +AMIO200T54 PO; +ATOR80TA59 PO; +LEXA5TAB13 PO; +METO25TA4 PO
[2025-06-15 14:40] LABS: PLATELET COUNT, AUTOMATED 268 10^3/uL (150-450)
== END ==
LOC: M SFHCADAM 14:14
PROVIDERS: ATTEND Physician Assistant Medical
DX: D50.9 Iron deficiency anemia, unspecified (principal); R35.0 Frequency of micturition

== ENCOUNTER → 2025-09-02 | Outpatient (REF) | payer MEDICARE, OTHER | LOC: M LAB REF 17:00 | PROVIDERS: ATTEND Physician Assistant | DX: R30.0 Dysuria (principal) ==

== ENCOUNTER → 2025-09-05 | Outpatient (CLI) | payer MEDICARE, OTHER ==
[2025-09-05 13:22] LABS: BASO # 0.0 10^3/uL (0.0-0.2); BASO % 0.6 % (0.0-1.0); EOS # 0.1 10^3/uL (0.0-0.5); EOS % 2.6 % (0.0-3.0); LYMPH # 1.8 10^3/uL (1.5-5.0); LYMPH % 33.9 % (24.0-44.0); MONO # 0.4 10^3/uL (0.0-0.8); MONO % 8.3 % (2.0-8.0); NEUTROPHILS # 2.9 10^3/uL (1.5-8.5); NEUTROPHILS % 54.4 % (36.0-66.0); PLATELET COUNT, AUTOMATED 252 10^3/uL (150-450)
[2025-09-05 13:53] LABS: IRON (FE) 58.0 UG/DL (50-170)
[2025-09-05 13:54] LABS: ALT/SGPT 22.0 U/L (7.0-40); AST/SGOT 24.0 U/L (<34); CALCIUM LEVEL 9.0 MG/DL (8.3-10.6); CARBON DIOXIDE LEVEL 28.0 MMOL/L (20-31); CHLORIDE LEVEL 105.0 MMOL/L (98-107); CHOLESTEROL LEVEL 167.0 MG/DL (<200); CHOLESTEROL RISK RATIO 4.29 (<5); CREATININE FOR GFR 1.01 MG/DL (0.55-1.30); GLOMERULAR FILTRATION RATE 54.6 (>32); LDL CHOLESTEROL 102.7 MG/DL (<100); NON-HDL-C 128.1 MG/DL; POTASSIUM SERUM 4.5 MMOL/L (3.5-5.1); SODIUM LEVEL 144.0 MMOL/L (136-145); TRIGLYCERIDES LEVEL 127.0 MG/DL (<150)
[2025-09-05 14:01] LABS: TOTAL 25(OH) VITAMIN D 46.2 NG/ML (20.0-100.0)
[2025-09-05 14:03] LABS: FREE T4 1.23 NG/DL (0.89-1.76)
== END ==
LOC: M WUC 08:37
PROVIDERS: ATTEND Physician Assistant Medical
DX: E78.1 Pure hyperglyceridemia (principal); D50.9 Iron deficiency anemia, unspecified; E78.2 Mixed hyperlipidemia; E55.9 Vitamin D deficiency, unspecified; R35.0 Frequency of micturition

== ENCOUNTER → 2025-10-02 | Outpatient (REF) | payer MEDICARE, OTHER | LOC: M LAB REF 17:33 | PROVIDERS: ATTEND Student in an Organized Health Care Education/Training Program | DX: R30.0 Dysuria (principal) ==